=== PATIENT | female | born 1985 | race Caucasian/White ===

== ENCOUNTER 2021-10-25 09:56 | Inpatient (IN) | payer MEDICAID, SELFPAY ==
[2021-10-25 09:58] VITALS: BP 144/97; PULSE 106; RESP 18; TEMP 35.9; O2SAT 95; BMI 27.8
--- NOTE | 2021-10-25 10:32 | ED.RN ---
0.5 dose of fentanyl. drinks alcohol daily.
--- NOTE | 2021-10-25 10:37 | EX.ED.SAOD ---
HPI History of Present Illness Chief Complaint: ETOH Intox Detail of Chief Complaint: wants detox Informant: patient Narrative Narrative: Patient requesting detox from opiates and alcohol. She was accepted to a residential program, and in order to get in there she has to go through detox for so she came straight here. She last drank this morning, she has no withdrawal symptoms right now. She uses half a gram of fentanyl per day and her last use was yesterday, she does this on top of methadone that she has been on for fentanyl. She is on 40 mg of methadone daily. She denies any recent illness or injury, she has chronic issues in her abdomen though. She states she was at [facility] once and they told her she is got some inflammation in her liver and something wrong with it. No biopsy was done according to her. She also had problems after an abdominal surgery, ended up with a tummy tuck, and then trouble healing and it was discovered that a small catheter was left in her abdomen so she had another surgery to get that out and she has had problems healing in 1 particular area ever since. She states that she takes the scab off of this area every morning and a lot of pus comes out, she had an appointment with a colleague of the plastic surgeon who did her surgery, but she missed that appointment. [facility] Medical History (Updated 10/25/21 @ 10:[address] Reji Mejia MD) Alcoholism Substance abuse Allergy/AdvReac Type Severity Reaction Status Date / Time Penicillins Allergy Other Verified 10/25/21 10:31 Social History (Updated 10/25/21 @ 10:[address] Reji Mejia MD) Smoking Status: Unknown if ever smoked alcohol intake: current alcohol intake frequency: other details: Daily heavy alcohol use substance use type: opiates ROS ROS ED Constitutional Constitutional ED: Reports other Details: Shaky in the mornings before she drinks alcohol, currently not shaky ; Denies chills or fever(s) Eyes Eyes: Denies change in vision or diplopia ENT ENT ED: Denies rhinorrhea or sore throat Cardiovascular Cardiovascular: Denies chest pain or palpitations Respiratory/Chest Respiratory/Chest: Denies cough or dyspnea Gastrointestinal Gastrointestinal: Reports other Details: Chronic abdominal pain no different today, mostly upper ; Denies diarrhea, nausea or vomiting Genitourinary Genitourinary ED: Denies dysuria or hematuria Musculoskeletal Musculoskeletal: Denies back pain or neck pain Integumentary Denies abscess or rash Neurologic Neurologic: Denies headache(s), paresthesias or weakness Psychiatric Psychiatric: Denies anxiety or suicidal thoughts EXAM Physical Exam Const Vital Signs: 10/25/21 09:58 Temperature 96.7 F L Temperature Source Temporal Pulse Rate 106 H Respiratory Rate 18 Blood Pressure 144/97 H Blood Pressure Mean 112 Pulse Ox 95 Oxygen Delivery Method Room Air Positive well nourished and well developed Constitutional Narrative: Intoxicated, cooperative, pleasant. General Appearance ED: well developed and NAD HEENT Reports moist mucous membranes normocephalic and atraumatic Eyes PERRL and EOMs intact bilaterally Neck full ROM and supple Resp normal respiratory effort and clear to auscultation bilaterally Cardio regular rate, regular rhythm and no murmurs GI non-distended; Negative for no masses GI Narrative: Mildly tender throughout upper abdomen no guarding or rebound tenderness. 2 small central ventral incisional hernia is reducible nontender nonerythematous. Small wound with a scab over it without overlying erythema mildly tender. Grossly does not feel like a pointing or fluctuant abscess. Auscultation: normoactive bowel sounds Palpation: soft Back/Spine no CVA tenderness General Back: other FROM Extremity normal to inspection General Extremety ED: Negative for edema, pulses abnormal or tenderness General Extremity: Negative for edema or pulses abnormal Neuro oriented x3, CN's II-XII intact bilaterally and no sensory deficits noted Sensorium / Orientation: awake and alert Motor Exam: strength 5/5 throughout Psych mental status grossly normal, thought process normal, denies homicidal ideation and denies suicidal ideation Skin no rashes or lesions noted and no wounds MDM MDM MDM Narrative Medical decision making narrative: I spoke with Dr. sU. She states since another clinic is managing her methadone, we will not be able to give her phenobarbital or Suboxone here, and she will basically need to follow-up for methadone dosing alterations in order to help her discontinue her fentanyl/opiate use, but we can admit her here for alcohol detox using benzos. I did check with the pharmacy who will be able to dose her with her methadone 40 mg daily while she is here, therefore I think it would be reasonable that we keep her. I discussed this with her, she is under the understanding that we will be detoxing her from alcohol but not opiates and we will be able to continue her methadone dosing while she is here and she is comfortable with that plan and appreciative. I did review all of her labs. Will discuss with hospitalist. Lab Data Attestation: I reviewed the patient's lab results. Labs: Laboratory Results - last 24 hr 10/25/21 10/25/21 10/25/21 10:51 11:20 11:20 Corrected WBC TAILOR GARMENT FITTER MPV TAILOR GARMENT FITTER Immature Gran % (Auto) TAILOR GARMENT FITTER Lymph % (Auto) TAILOR GARMENT FITTER [place] % (Auto) TAILOR GARMENT FITTER Eos % (Auto) TAILOR GARMENT FITTER Baso % (Auto) TAILOR GARMENT FITTER Absolute Lymphs (auto) TAILOR GARMENT FITTER Total Counted TAILOR GARMENT FITTER Neutrophils % (Manual) TAILOR GARMENT FITTER Band Neutrophils % TAILOR GARMENT FITTER Lymphocytes % (Manual) TAILOR GARMENT FITTER Monocytes % (Manual) TAILOR GARMENT FITTER Eosinophils % (Manual) TAILOR GARMENT FITTER Basophils % (Manual) TAILOR GARMENT FITTER Metamyelocytes % TAILOR GARMENT FITTER Myelocytes % TAILOR GARMENT FITTER Promyelocytes % TAILOR GARMENT FITTER Blast Cells % TAILOR GARMENT FITTER Plasma Cell % (Manual) TAILOR GARMENT FITTER Other Cells % TAILOR GARMENT FITTER Nucleated RBC % TAILOR GARMENT FITTER Nucleated RBCs/100 WBC TAILOR GARMENT FITTER Differential Comment TAILOR GARMENT FITTER Diff Path Review TAILOR GARMENT FITTER Hypersegmented Neuts TAILOR GARMENT FITTER Atypical Lymphocytes TAILOR GARMENT FITTER Reactive Lymphocytes TAILOR GARMENT FITTER Smudge Cells TAILOR GARMENT FITTER Toxic Granulation TAILOR GARMENT FITTER Toxic Vacuolation TAILOR GARMENT FITTER Dohle Bodies TAILOR GARMENT FITTER Vasquez Rods TAILOR GARMENT FITTER Platelet Estimate TAILOR GARMENT FITTER Plt Morphology Comment TAILOR GARMENT FITTER RBC Morphology TAILOR GARMENT FITTER Polychromasia TAILOR GARMENT FITTER Hypochromasia TAILOR GARMENT FITTER Poikilocytosis TAILOR GARMENT FITTER Basophilic Stippling TAILOR GARMENT FITTER Anisocytosis TAILOR GARMENT FITTER Microcytosis TAILOR GARMENT FITTER Macrocytosis TAILOR GARMENT FITTER Spherocytes TAILOR GARMENT FITTER Sickle Cells TAILOR GARMENT FITTER Target Cells TAILOR GARMENT FITTER Tear Drop Cells TAILOR GARMENT FITTER Ovalocytes TAILOR GARMENT FITTER Stomatocytes TAILOR GARMENT FITTER [place] Bodies TAILOR GARMENT FITTER [place] Cells TAILOR GARMENT FITTER Bite Cells TAILOR GARMENT FITTER Crenated Cell TAILOR GARMENT FITTER Acanthocytes (Spur) TAILOR GARMENT FITTER Rouleaux TAILOR GARMENT FITTER Schistocytes TAILOR GARMENT FITTER PT 13.1 INR 1.0 Sodium Potassium Chloride Carbon Dioxide Anion Gap BUN Creatinine Estim Creat Clear Calc Est GFR (MDRD) Af Amer Est GFR (MDRD) Non-Af BUN/Creatinine Ratio Glucose Calcium Total Bilirubin AST ALT Alkaline Phosphatase Total Protein Albumin Globulin Albumin/Globulin Ratio Serum , Qual Urine Opiates Screen POSITIVE H Urine Methadone Screen POSITIVE H Ur Barbiturates Screen NEGATIVE Ur Phencyclidine Scrn NEGATIVE Ur Amphetamines Screen NEGATIVE MDMA (Ecstasy) Screen NEGATIVE U Benzodiazepines Scrn POSITIVE H Urine Cocaine Screen NEGATIVE U Cannabinoids Screen NEGATIVE Ur Drug Screen Comment Ethyl Alcohol 10/25/21 10/25/21 10/25/21 11:20 11:20 11:20 Corrected WBC MPV Immature Gran % (Auto) Lymph % (Auto) [place] % (Auto) Eos % (Auto) Baso % (Auto) Absolute Lymphs (auto) Total Counted Neutrophils % (Manual) Band Neutrophils % Lymphocytes % (Manual) Monocytes % (Manual) Eosinophils % (Manual) Basophils % (Manual) Metamyelocytes % Myelocytes % Promyelocytes % Blast Cells % Plasma Cell % (Manual) Other Cells % Nucleated RBC % Nucleated RBCs/100 WBC Differential Comment Diff Path Review Hypersegmented Neuts Atypical Lymphocytes Reactive Lymphocytes Smudge Cells Toxic Granulation Toxic Vacuolation Dohle Bodies Vasquez Rods Platelet Estimate Plt Morphology Comment RBC Morphology Polychromasia Hypochromasia Poikilocytosis Basophilic Stippling Anisocytosis Microcytosis Macrocytosis Spherocytes Sickle Cells Target Cells Tear Drop Cells Ovalocytes Stomatocytes [place] Bodies Rocky Cells Bite Cells Crenated Cell Acanthocytes (Spur) Rouleaux Schistocytes PT INR Sodium 139 Potassium 3.6 Chloride 105 Carbon Dioxide 26.0 Anion Gap 8 BUN 12 Creatinine 0.60 Estim Creat Clear Calc 123.68 Est GFR (MDRD) Af Amer 145 Est GFR (MDRD) Non-Af 120 BUN/Creatinine Ratio 19.9 Glucose 99 Calcium 8.8 Total Bilirubin 0.30 AST 80 H ALT 53 Alkaline Phosphatase 59 Total Protein 7.3 Albumin 3.2 Globulin 4.1 Albumin/Globulin Ratio 0.8 L Serum , Qual NEGATIVE Urine Opiates Screen Urine Methadone Screen Ur Barbiturates Screen Ur Phencyclidine Scrn Ur Amphetamines Screen MDMA (Ecstasy) Screen U Benzodiazepines Scrn Urine Cocaine Screen U Cannabinoids Screen Ur Drug Screen Comment Ethyl Alcohol 188.0 Discharge Plan Dx/Rx/DC Orders Clinical Impression: Alcohol dependence, Opiate dependence Disposition Disposition: Acute Care Hospital [facility]
--- NOTE | 2021-10-25 11:01 | CM.ED ---
DAYANA Note: DAYANA met with patient and Dashatruong Meek, [facility]venile [facility] Court Director. Patient gave verbal consent to speak to her in the presence of the Ms. Meek. Patient said that she is at the hospital for detox. Patient said that she is wanting to detox from fentanyl 1/2 gram and alcohol which patient said was alot. Patient was asked to quantify what alot of alcohol is an patient said bag of vodka. Patient said that her alcohol has increased for the last 2 months. Patient goes to [facility] for methadone. [facility] is located at [address] [place] and phone [phone]. Patient said that she is going to she was on 90 mg but due to the alcohol use she was using they decreased her methadone down by 10mg every other day and is now on 40 mg of methadone. Patient said that her methadone is being decreased due to her alcohol use. Patient said that after detox she is going to [facility] in [place] through [facility]. Patient said that she doses at 6am and her dose is between 6-8am. Patient said that this machine sign writer can speak to Dai, the RN or Lilly the Door Person. Patient was advised of the RAMP program including no visitors, no phones, no outside food and belongings locked up. Patient verbalized understanding with the RAMP program and stated her had been here in the past. Patient has drank this morning. Patient signed [facility] for [facility]. DAYANA called Andrew, Addiction Therapist at [facility] and reviewed this situation with her as patient is on methadone and is requesting detox from alcohol and fentanyl. DAYANA advised that patient is going to methadone clinic, [facility] and then plans to detox at [facility] and go to [facility]. Patient plans to continue on methadone. Andrew will speak to Dr. Us and update this machine sign writer. DAYANA updated . Andrew spoke to MD Us and called this machine sign writer back. Andrew advised that they do not dispense over 30 and that patient needs to go back to the clinic for detox. Andrew said that there is no detox from fentanyl per MD Us. DAYANA spoke to who requested that he speak to MD Us. Andrew provided MD Us's phone number to . indicated he spoke to Abeba and that Abeba stated patient could be admitted to RAMP program. DAYANA called Yaima in Pharmacy to see if the hospital pharmacy could provide 40 mg of methadone to patient for 3 to 5 days. Yaima will check and call this machine sign writer back. DAYANA called Dai at [facility]. She said that patient's last dose was at 8:44am on 10/24/21 with 40 mg. Dai confirmed that they were tapering patient down at 10 mg every 2 days but they put a hold on that as we got confirmation she was going to detox. Dai wanted to speak to RN to confirm the dosage. DAYANA obtained patient's RN, Patricia, and requested she speak to Dai. Patricia spoke to Dai and Dai advised that patient was receiving 40 mg with last dose on 10/24/21 at 8:44am. DAYANA spoke to Andrew. Andrew was advised that the patient could be admitted after spoke to Abeba. Andrew said that she will confirm about the dosage being 40 mg with Abeba. DAYANA spoke to Andrew who indicated that the limit is 30 mg if they are detoxing from methadone but patient is continuing on methadone so the dosage will remain the same. Per Andrew plan is to admit patient for detox. DAYANA updated patient. Patient is being admitted. Patient asked this machine sign writer to call [facility] and [facility]. DAYANA encouraged patient to call and advise them of her detox. Patient agreed. DAYANA said that patient will be followed with the [facility] Addiction therapist/Treatment Navigator on Thursday. Patient thanked machine sign writer. DAYANA received call from Yaima. She indicated she has enough methadone for 3-5 days of methadone at 40 mg. DAYANA updated Andrew with patient's name, address, and and drugs of choice and request for detox. DAYANA was advised by MD that patient is vaping in the room. DAYANA and LARY Gomez spoke to patient. Advised that if she vapes again it her vape product will be taken away. DAYANA called Andrew and updated her. For clarification patient is NOT detoxing from methadone. She is detoxing from alcohol. Per MD Us there is no detox from fentanyl. Patient is able to receive 40 mg of detox as she is NOT detoxing from it and the dosage is continuing. If patient was detoxing from methadone she would need to be back at the clinic she is going to for treatment. Plan: RAMP program. Plan: Ad
[2021-10-25 11:16] LABS: Amphetamine Urine VISTA NEGATIVE (<1000 ng/mL); Barbiturate Urine VISTA NEGATIVE (< 200 ng/mL); Benzodiazepine Urine VISTA POSITIVE (< 200 ng/mL); Cocaine Urine VISTA NEGATIVE (< 300 ng/mL); Ecstacy Urine VISTA NEGATIVE (< 500 ng/mL); Methadone Urine VISTA POSITIVE (< 300 ng/mL); PCP Urine VISTA NEGATIVE (< 25 ng/mL); THC Urine VISTA NEGATIVE (< 50 ng/mL); Vista UDS pH Range 6
[2021-10-25 11:54] LABS: Prothrombin Time (Protime)PT. 13.1 SECONDS (11.7-14.9)
[2021-10-25 11:55] LABS: Internal QC Validated? YES +Cl - CLEAR BKGD
[2021-10-25 11:56] LABS: Pregnancy, Serum, hCG Quali. NEGATIVE Negative
[2021-10-25 11:58] LABS: ALB/GLOB Ratio 0.8 RATIO (0.9-2.4); AST(SGOT) 80 U/L (15-37); Alanine Aminotransfer ALT/SGPT 53 U/L (13-56); Albumin, Serum 3.2 g/dL (3.2-5.0); Alkaline Phosphatase 59 U/L (45-117); Anion Gap 8 (5-15); BUN 12 mg/dL (7-18); BUN/Creat Ratio 19.9 RATIO (10-20); Calcium,Total 8.8 mg/dL (8.5-10.1); Chloride 105 mmol/L (98-107); EST Glomerular Filtration Rate 120 mL/min (>60); Est Glom Filt Rate - Afr Amer 145 mL/min (>60); Estimated Creatinine Clearance 123.68 ml/min; Globulin 4.1 g/dL (2.2-4.2); Glucose 99 mg/dL (74-106); Potassium 3.6 mmol/L (3.5-5.1); Protein, Total 7.3 g/dL (6.4-8.2); Sodium Level 139 mmol/L (136-145)
[2021-10-25 12:00] VITALS: BP 104/79; PULSE 67; RESP 16; O2SAT 94
[2021-10-25 12:56] LABS: Absolute Lymphocyte Count 3.09 X10^3/uL (0.83-4.51); Absolute Neutrophil Count 4.3 X10^3/uL (2.0-7.7); Basophil# 0.03 X10^3/uL; Basophil% 0.4 % (0-1); Eosinophil# 0.15 X10^3/uL; Eosinophils% 1.8 % (0-5); Hematocrit 38.5 % (37-47); Hemoglobin 13.5 g/dL (12.0-15.0); Lymphocyte # 3.09 X10^3/ul (0.83-4.51); Lymphocyte % 37.6 % (19-41); Mean Corp Hgb Conc 35.1 g/dL (32-36); Mean Corpuscular Hgb 33.6 pg (27.0-32.0); Mean Corpuscular Volume 95.8 fL (81-99); Mean Platelet Vol. 8.5 fl (6.2-12.0); Monocyte# 0.66 X10^3/uL; NRBC Flagged by Analyzer 0 % (0-5); Neutrophil # 4.26 X10^3/uL (2.7-7.7); Platelet Count 220 K/mm3 (150-450); RBC Distribution Width CV 11.7 % (11.6-14.6); Red Blood Count 4.02 M/mm3 (4.2-5.4); White Blood Count 8.2 K/mm3 (4.4-11.0)
--- NOTE | 2021-10-25 13:21 | PCM.HP.STD ---
HPI - General General Date of Admission: 10/25/21 Date of Service: 10/25/21 Chief Complaint: Alcohol withdrawal HPI Narrative KOKI NGO, is a 35 F who presents seeking treatment for alcohol withdrawal. Patient stated that she is going to a residential program at [facility] but was advised to come to the hospital for acute treatment for alcohol withdrawal. Patient does have a history of delirium tremens. Additionally, patient is on methadone which she has been for 7 years and has been using fentanyl. She tells me that her addiction program, [facility], in [place] prescribes her methadone. Patient had been snorting fentanyl relatively recently and states that the program there is aware that she was using fentanyl while prescribing her methadone. For alcohol, patient is drinking about a liter of vodka per day plus additional shots of alcohol on top of that. [facility] Medical History (Updated 10/25/21 @ 13:[address] Moy Doe DO) Alcoholic hepatitis Alcoholic pancreatitis Alcoholism Hepatitis C Substance abuse Allergy/AdvReac Type Severity Reaction Status Date / Time Penicillins Allergy Other Verified 10/25/21 10:31 Family History (Updated 10/25/21 @ 13:[address] Moy Doe DO) Other Alcoholism Surgical History (Updated 10/25/21 @ 13:[address] Moy Doe DO) H/O abdominoplasty H/O: hysterectomy Social History (Updated 10/25/21 @ 10:[address] Reji Mejia MD) Smoking Status: Unknown if ever smoked alcohol intake: current alcohol intake frequency: other details: Daily heavy alcohol use substance use type: opiates ROS MISSY Sanchez Has had drainage from wound in her abdomen for since her abdominoplasty. Is able to express pus from it daily. Feels that there may be still some plastic in there. All review of systems were negative except as mentioned above in the history of present illness and the other review of systems. Vital Signs Vital Signs Vital Signs: 10/25/21 09:58 Temperature 35.9 C L Temperature Source Temporal Pulse Rate 106 H Respiratory Rate 18 Blood Pressure 144/97 H Blood Pressure Mean 112 Pulse Ox 95 Oxygen Delivery Method Room Air Weight Weight: 79.379 kg Body Mass Index (BMI) 27.8 Physical Exam Const alert and oriented x3 Constitutional Narrative: Up in bed eating. Resp normal respiratory effort, no retractions, no use of accessory muscles and clear to auscultation bilaterally Cardio regular rate, regular rhythm, S1 normal heart sound and S2 normal heart sound GI normal to inspection, nondistended, normoactive bowel sounds and soft to palpation Skin Skin Narrative: Wound on anterior abdomen without any purulence adjacent to the umbilicus. Psych affect normal Results Lab / Micro Data Result Diagrams: 10/25/21 11:20 10/25/21 11:20 Labs: Laboratory Results - last 24 hr 10/25/21 10:51: Urine Opiates Screen POSITIVE H, Urine Methadone Screen POSITIVE H, Ur Barbiturates Screen NEGATIVE, Ur Phencyclidine Scrn NEGATIVE, Ur Amphetamines Screen NEGATIVE, MDMA (Ecstasy) Screen NEGATIVE, U Benzodiazepines Scrn POSITIVE H, Urine Cocaine Screen NEGATIVE, U Cannabinoids Screen NEGATIVE, Ur Drug Screen Comment 10/25/21 11:20: WBC 8.2, Corrected WBC RECEIVING SPECIALIST, RBC 4.02 L, Hgb 13.5, Hct 38.5, MCV 95.8, MCH 33.6 H, MCHC 35.1, RDW Std Deviation 41.0, RDW Coeff of Yolanda 11.7, Plt Count 220, MPV 8.5, Immature Gran % (Auto) 0.200, Neut % (Auto) 52.0, Lymph % (Auto) 37.6, [place] % (Auto) 8.0, Eos % (Auto) 1.8, Baso % (Auto) 0.4, Absolute Neuts (auto) 4.3, Absolute Lymphs (auto) 3.09, Total Counted RECEIVING SPECIALIST, Neutrophils % (Manual) RECEIVING SPECIALIST, Band Neutrophils % RECEIVING SPECIALIST, Lymphocytes % (Manual) RECEIVING SPECIALIST, Monocytes % (Manual) RECEIVING SPECIALIST, Eosinophils % (Manual) RECEIVING SPECIALIST, Basophils % (Manual) RECEIVING SPECIALIST, Metamyelocytes % RECEIVING SPECIALIST, Myelocytes % RECEIVING SPECIALIST, Promyelocytes % RECEIVING SPECIALIST, Blast Cells % RECEIVING SPECIALIST, Plasma Cell % (Manual) RECEIVING SPECIALIST, Other Cells % RECEIVING SPECIALIST, Nucleated RBC % 0, Nucleated RBCs/100 WBC RECEIVING SPECIALIST, Differential Comment RECEIVING SPECIALIST, Diff Path Review RECEIVING SPECIALIST, Hypersegmented Neuts RECEIVING SPECIALIST, Atypical Lymphocytes RECEIVING SPECIALIST, Reactive Lymphocytes RECEIVING SPECIALIST, Smudge Cells RECEIVING SPECIALIST, Toxic Granulation RECEIVING SPECIALIST, Toxic Vacuolation RECEIVING SPECIALIST, Dohle Bodies RECEIVING SPECIALIST, Vasquez Rods RECEIVING SPECIALIST, Platelet Estimate RECEIVING SPECIALIST, Plt Morphology Comment RECEIVING SPECIALIST, RBC Morphology RECEIVING SPECIALIST, Polychromasia RECEIVING SPECIALIST, Hypochromasia RECEIVING SPECIALIST, Poikilocytosis RECEIVING SPECIALIST, Basophilic Stippling RECEIVING SPECIALIST, Anisocytosis RECEIVING SPECIALIST, Microcytosis RECEIVING SPECIALIST, Macrocytosis RECEIVING SPECIALIST, Spherocytes RECEIVING SPECIALIST, Sickle Cells RECEIVING SPECIALIST, Target Cells RECEIVING SPECIALIST, Tear Drop Cells RECEIVING SPECIALIST, Ovalocytes RECEIVING SPECIALIST, Stomatocytes RECEIVING SPECIALIST, [place] Bodies RECEIVING SPECIALIST, Rocky Cells RECEIVING SPECIALIST, Bite Cells RECEIVING SPECIALIST, Crenated Cell RECEIVING SPECIALIST, Acanthocytes (Spur) RECEIVING SPECIALIST, Rouleaux RECEIVING SPECIALIST, Schistocytes RECEIVING SPECIALIST 10/25/21 11:20: PT 13.1, INR 1.0 10/25/21 11:20: Sodium 139, Potassium 3.6, Chloride 105, Carbon Dioxide 26.0, Anion Gap 8, BUN 12, Creatinine 0.60, Estim Creat Clear Calc 123.68, Est GFR (MDRD) Af Amer 145, Est GFR (MDRD) Non-Af 120, BUN/Creatinine Ratio 19.9, Glucose 99, Calcium 8.8, Total Bilirubin 0.30, AST 80 H, ALT 53, Alkaline Phosphatase 59, Total Protein 7.3, Albumin 3.2, Globulin 4.1, Albumin/Globulin Ratio 0.8 L 10/25/21 11:20: Ethyl Alcohol 188.0 10/25/21 11:20: Serum , Qual NEGATIVE Assessment & Plan Assessment/Plan (1) Alcohol dependence: PLAN: Patient's last drink was today and not actively going through alcohol withdrawal but per her history she does have history of delirium tremens. Will initiate lorazepam taper as she is already on methadone chronically for opiate withdrawal. Thiamine and folate Patient to follow-up at the program [facility] (2) Opiate dependence: PLAN: Patient on methadone chronically at [facility]. Patient informed me that they were aware that she is using fentanyl while prescribing methadone. I spoke to 1 the counselors at [facility] and told me that the patient had been discharged from the practice. They were concerned as the patient was using fentanyl and drinking alcohol. They want the patient enrolled into a residential program. Though technically the patient is correct and the fact that they knew she was using fentanyl while giving her methadone they gave her her last dose of methadone yesterday. That dose was 40 mg. Patient did not volunteer to me that she was being fired from their practice. Will continue with the 40 mg of methadone. PLAN: Plan Nicotine abuse: Nicotine patch. Patient was seen vaping earlier in the emergency room. Patient informed that she would not be allowed to vape or smoke while in the hospital. VTE prophylaxis with enoxaparin Charges/Coding Visit Charges Inpatient E&M: 65778 Init Hosp L2
--- NOTE | 2021-10-25 13:24 | NURSING ---
[facility] ALCOHOL/OPIATE DEPENDENCE
[2021-10-25 13:50] VITALS: BP 104/79; PULSE 67; RESP 16; TEMP 36.6; O2SAT 94
[2021-10-25 15:02] VITALS: BMI 29.4
[2021-10-25 15:24] VITALS: BP 111/86; PULSE 74; RESP 18; TEMP 36.4; O2SAT 95
[2021-10-25 15:55] LABS: Lipase 86 U/L (73-393)
[2021-10-25] MEDS: Methadone 10 MG Tablet 40 MG PO (16:19)
--- NOTE | 2021-10-25 17:00 | PCA ---
al called requesting more info on pt. ramp coordinator Andrew informed me they be calling if they do to give them more information. Medical record release was signed by pt and Andrew. Andrew informed me to fax what they request. I faxed to to [facility]
[2021-10-25] MEDS: LORazepam 1 MG Tablet PO ×2 (17:15→20:17)
[2021-10-25 20:14] VITALS: BP 107/73; PULSE 68; RESP 18; TEMP 36.8; O2SAT 96
[2021-10-25] MEDS: Nicotine Polacrilex 2 MG GUM PO (22:51)
[2021-10-25 22:58] VITALS: BP 106/72; PULSE 54; RESP 16; TEMP 36.8; O2SAT 96
[2021-10-26 04:28] VITALS: BP 108/83; PULSE 60; RESP 16; TEMP 36.2; O2SAT 95
[2021-10-26] MEDS: LORazepam 1 MG Tablet PO ×5 (04:32→20:56)
--- NOTE | 2021-10-26 07:07 | PCM.PN.HOSP ---
Subjective Subjective Feels good. No events overnight. Objective Data Objective Data Vital Signs: Vital Signs Temp Pulse Resp BP Pulse Ox O2 Del Method 36.2 C L 60 16 108/83 H 95 Room Air 10/26/21 04:28 10/26/21 04:28 10/26/21 04:28 10/26/21 04:28 10/26/21 04:28 10/26/21 04:28 Oxygen Delivery Method Room Air Weight: 83.96 kg Body Mass Index (BMI) 29.4 Intake & Output: Intake and Output for Last 24 Hours 10/24/21 10/25/21 10/26/21 23:59 23:59 23:59 Intake Total 300 / 300 Balance 300 / 300 Lab / Micro Data Result Diagrams: 10/25/21 11:20 10/25/21 11:20 Labs: Laboratory Results - last 24 hr 10/25/21 10:51: Urine Opiates Screen POSITIVE H, Urine Methadone Screen POSITIVE H, Ur Barbiturates Screen NEGATIVE, Ur Phencyclidine Scrn NEGATIVE, Ur Amphetamines Screen NEGATIVE, MDMA (Ecstasy) Screen NEGATIVE, U Benzodiazepines Scrn POSITIVE H, Urine Cocaine Screen NEGATIVE, U Cannabinoids Screen NEGATIVE, Ur Drug Screen Comment 10/25/21 11:20: WBC 8.2, Corrected WBC SHAPER [employer] PRESSER, RBC 4.02 L, Hgb 13.5, Hct 38.5, MCV 95.8, MCH 33.6 H, MCHC 35.1, RDW Std Deviation 41.0, RDW Coeff of Yolanda 11.7, Plt Count 220, MPV 8.5, Immature Gran % (Auto) 0.200, Neut % (Auto) 52.0, Lymph % (Auto) 37.6, [place] % (Auto) 8.0, Eos % (Auto) 1.8, Baso % (Auto) 0.4, Absolute Neuts (auto) 4.3, Absolute Lymphs (auto) 3.09, Total Counted SHAPER [employer] PRESSER, Neutrophils % (Manual) SHAPER [employer] PRESSER, Band Neutrophils % [employer] PRESSER, Lymphocytes % (Manual) [employer]ER [employer] PRESSER, Monocytes % (Manual) SHAPER [employer] PRESSER, Eosinophils % (Manual) SH[employer] PRESSER, Basophils % (Manual) SHAPER [employer] PRESSER, Metamyelocytes % [employer]ER [employer] PRESSER, Myelocytes % [employer]ER [employer] PRESSER, Promyelocytes % SHAPER [employer] PRESSER, Blast Cells % SHAPER [employer] PRESSER, Plasma Cell % (Manual) SHAPER [employer] PRESSER, Other Cells % SHAPER [employer] PRESSER, Nucleated RBC % 0, Nucleated RBCs/100 WBC SHAPER AND PRESSER, Differential Comment SHAPER [employer] PRESSER, Diff Path Review SHAPER [employer] PRESSER, Hypersegmented Neuts [employer] PRESSER, Atypical Lymphocytes [employer] PRESSER, Reactive Lymphocytes SHAPER [employer] PRESSER, Smudge Cells SHAPER [employer] PRESSER, Toxic Granulation SHAPER [employer] PRESSER, Toxic Vacuolation SHAPER [employer] PRESSER, Dohle Bodies SHAPER AND PRESSER, Vasquez Rods SHAPER AND PRESSER, Platelet Estimate SHAPER [employer] PRESSER, Plt Morphology Comment SHAPER [employer] PRESSER, RBC Morphology SHAPER [employer] PRESSER, Polychromasia SHAPER [employer] PRESSER, Hypochromasia SHAPER [employer] PRESSER, Poikilocytosis SHAPER [employer] PRESSER, Basophilic Stippling SHAPER [employer] PRESSER, Anisocytosis SH[employer]ER [employer] PRESSER, Microcytosis [employer] PRESSER, Macrocytosis SHAPER [employer] PRESSER, Spherocytes SHAPER [employer] PRESSER, Sickle Cells SHAPER [employer] PRESSER, Target Cells SHAPER [employer] PRESSER, Tear Drop Cells SHAPER [employer] PRESSER, Ovalocytes SHAPER [employer] PRESSER, Stomatocytes SHAPER [employer] PRESSER, [place] Bodies SHAPER AND PRESSER, [place] Cells SHAPER AND PRESSER, Bite Cells SHAPER AND PRESSER, Crenated Cell SHAPER AND PRESSER, Acanthocytes (Spur) SHAPER AND PRESSER, Rouleaux SHAPER AND PRESSER, Schistocytes SHAPER [employer] PRESSER 10/25/21 11:20: PT 13.1, INR 1.0 10/25/21 11:20: Sodium 139, Potassium 3.6, Chloride 105, Carbon Dioxide 26.0, Anion Gap 8, BUN 12, Creatinine 0.60, Estim Creat Clear Calc 123.68, Est GFR (MDRD) Af Amer 145, Est GFR (MDRD) Non-Af 120, BUN/Creatinine Ratio 19.9, Glucose 99, Calcium 8.8, Total Bilirubin 0.30, AST 80 H, ALT 53, Alkaline Phosphatase 59, Total Protein 7.3, Albumin 3.2, Globulin 4.1, Albumin/Globulin Ratio 0.8 L 10/25/21 11:20: Ethyl Alcohol 188.0 10/25/21 11:20: Serum , Qual NEGATIVE 10/25/21 11:20: Lipase 86 Physical Exam Const alert Constitutional Narrative: Up in bed eating breakfast. No diaphoresis. Appropriate Neuro Sensorium / Orientation: awake and alert Psych affect normal Assessment & Plan Assessment/Plan (1) Alcohol dependence: PLAN: Patient's last drink was 8/6 and not actively going through alcohol withdrawal but per her history she does have history of delirium tremens. Will initiate lorazepam taper as she is already on methadone chronically for opiate withdrawal. Thiamine and folate Patient to follow-up at the program [facility] (2) Opiate dependence: PLAN: Patient on methadone chronically at [facility]. Patient informed me that they were aware that she is using fentanyl while prescribing methadone. I spoke to 1 the counselors at [facility] and told me that the patient had been discharged from the practice. They were concerned as the patient was using fentanyl and drinking alcohol. They want the patient enrolled into a residential program. Though technically the patient is correct and the fact that they knew she was using fentanyl while giving her methadone they gave her her last dose of methadone yesterday. That dose was 40 mg. Patient did not volunteer to me that she was being fired from their practice. Will continue with the 40 mg of methadone. Further adjustments can be performed when she goes to residential program. Patient will not be going back to [facility] as a informed me that she was fired from their practice for using fentanyl as well as drinking large quantities of alcohol while on methadone. PLAN: Plan Nicotine abuse: Nicotine patch. Patient was seen vaping earlier in the emergency room. Patient informed that she would not be allowed to vape or smoke while in the hospital. VTE prophylaxis with enoxaparin Disposition: Likely October 28 to [facility] residential program. Charges/Coding Visit Charges Inpatient E&M: 54593 Subs Hosp L1
[2021-10-26 09:01] VITALS: BP 113/79; PULSE 62; RESP 18; TEMP 36.9; O2SAT 94
[2021-10-26] MEDS: Dicyclomine 10 MG Capsule 20 MG PO ×2 (09:11→16:33)
[2021-10-26] MEDS: Ondansetron 8 MG Tablet PO ×2 (09:11→21:02)
[2021-10-26] MEDS: Methadone 10 MG Tablet 40 MG PO (09:11)
[2021-10-26] MEDS: Folic Acid 1 MG Tablet PO (09:12)
[2021-10-26] MEDS: Thiamine Hydrochloride 100 MG Tablet PO (09:12)
[2021-10-26] MEDS: hydrOXYzine PAM 25 MG Capsule 50 MG PO ×2 (09:12→16:33)
[2021-10-26] MEDS: Nicotine Polacrilex 2 MG GUM PO (09:14)
[2021-10-26] MEDS: Estradiol 0.5 MG Tablet PO (12:23)
[2021-10-26] MEDS: Clindamycin HCl 150 MG Capsule 300 MG PO ×2 (12:24→20:57)
[2021-10-26 12:25] VITALS: BP 110/74; PULSE 63; RESP 18; TEMP 36.8; O2SAT 95
[2021-10-26 16:31] VITALS: BP 110/66; PULSE 66; RESP 16; TEMP 36.9; O2SAT 98
[2021-10-26 20:53] VITALS: BP 121/89; PULSE 72; RESP 18; TEMP 36.4; O2SAT 93
[2021-10-26] MEDS: Ibuprofen 600 MG Tablet PO (21:03)
[2021-10-27] MEDS: LORazepam 1 MG Tablet PO ×7 (00:49→23:42)
[2021-10-27 05:03] VITALS: BP 124/81; PULSE 80; RESP 18; TEMP 36.9; O2SAT 96
[2021-10-27] MEDS: Methadone 10 MG Tablet 40 MG PO (05:03)
--- NOTE | 2021-10-27 07:32 | PN.HOSP_ITS ---
Subjective Subjective Feels fine. Does complain of chronic abdominal pain and distention. Objective Data Objective Data Vital Signs: Vital Signs Temp Pulse Resp BP Pulse Ox O2 Del Method 36.9 C 80 18 124/81 H 96 Room Air 10/27/21 05:03 10/27/21 05:03 10/27/21 05:03 10/27/21 05:03 10/27/21 05:03 10/27/21 05:03 Oxygen Delivery Method Room Air Weight: 83.96 kg Body Mass Index (BMI) 29.4 Intake & Output: Intake and Output for Last 24 Hours 10/25/21 10/26/21 10/27/21 23:59 23:59 23:59 Intake Total 300 / 300 Balance 300 / 300 Lab / Micro Data Result Diagrams: 10/25/21 11:20 10/25/21 11:20 Physical Exam Const alert and no apparent distress GI soft to palpation GI Narrative: Reducible hernia just below umbilicus. Psych Psych Narrative: Flat affect Assessment & Plan Assessment/Plan (1) Alcohol dependence: PLAN: Patient's last drink was 10/26 and not actively going through alcohol withdrawal but per her history she does have history of delirium tremens. Will initiate lorazepam taper as she is already on methadone chronically for opiate withdrawal. Thiamine and folate Patient to follow-up at the program [facility] (2) Opiate dependence: PLAN: Patient on methadone chronically at [facility]. Patient informed me that they were aware that she is using fentanyl while prescribing methadone. I spoke to 1 the counselors at [facility] and told me that the patient had been discharged from the practice. They were concerned as the patient was using fentanyl and drinking alcohol. They want the patient enrolled into a residential program. Though technically the patient is correct and the fact t hat they knew she was using fentanyl while giving her methadone they gave her her last dose of methadone yesterday. That dose was 40 mg. Patient did not volunteer to me that she was being fired from their practice. Will continue with the 40 mg of methadone. Further adjustments can be performed when she goes to residential program. Patient will not be going back to [facility] as a informed me that she was fired from their practice for using fentanyl as well as drinking large quantities of alcohol while on methadone. (3) Abdominal hernia: PLAN: Patient has been having abdominal pain for months now. Lower abdomen. She was concerned about her organs being involved. Informed patient that her liver and pancreas that she was concerned about area and also mention her spleen is not as well. Patient in 2017 the central abruption and had an emergent C- section at that time. Subsequently she in 2019 she underwent hysterectomy and had 2 hernia surgeries. Clinically this is consistent with a recurrent hernia that is not incarcerated. Recommended that she follow-up with her plastic surgeon who did her previous hernia surgery to see if she would be a candidate for another surgery or not. I did offer her a x-ray but I told her that this is been going on for a while and her reason for admission is alcohol withdrawal that I cannot justify doing imaging of her abdomen particular since this not process. She was not satisfied with just getting an x-ray and thought that she could just get scans of her abdomen because she is in the hospital. PLAN: Plan Nicotine abuse: Nicotine patch. Patient was seen vaping earlier in the emergency room. Patient informed that she would not be allowed to vape or smoke while in the hospital. VTE prophylaxis with enoxaparin Disposition: Likely October 28 to [facility]. Greater than 35 minutes of which greater than for present time was discussing the patient about her abdomen, reviewing her history and also discussing why certain test cannot be performed in the hospital when someone's reason for admission is not related with the indication for testing. I did tell her that if there is an acute issue that we can certainly reevaluate but the issue. Charges/Coding Visit Charges Inpatient E&M: [address] [facility] Hosp L3
[2021-10-27 08:00] VITALS: BP 109/83; PULSE 60; RESP 18; TEMP 36.6; O2SAT 98
[2021-10-27] MEDS: Folic Acid 1 MG Tablet PO (09:38)
[2021-10-27] MEDS: Thiamine Hydrochloride 100 MG Tablet PO (09:38)
[2021-10-27] MEDS: Clindamycin HCl 150 MG Capsule 300 MG PO ×2 (09:39→20:29)
[2021-10-27] MEDS: Estradiol 0.5 MG Tablet PO (09:40)
[2021-10-27] MEDS: hydrOXYzine PAM 25 MG Capsule 50 MG PO ×2 (09:50→20:26)
[2021-10-27] MEDS: Nicotine Polacrilex 2 MG GUM PO ×2 (10:41→18:53)
[2021-10-27] MEDS: Fleet Enema 1 ML RC (14:12)
[2021-10-27 15:38] VITALS: BP 117/89; PULSE 70; RESP 16; TEMP 36.6; O2SAT 94
[2021-10-27 20:23] VITALS: BP 123/94; PULSE 89; RESP 20; TEMP 37; O2SAT 94
--- NOTE | 2021-10-27 22:18 | NURSING ---
Took a phone call from Delmy Senait, . Delmy states she is working with the courts and needs the patient to sign papers. The court needs to have the papers by noon 10/28/2021. Delmy states she is working with an promotions director named Tommy but she is unsure of how to spell his last name. This RN called the spring up supervisor. It was decided that Delmy will need to call in and talk to case management in the morning. This RN told Delmy that she would need to call in the morning to talk to case management. Delmy states that she may be able to have the papers faxed over to the hospital and then the patient can sign them.
[2021-10-27 23:38] VITALS: BP 112/80; PULSE 72; RESP 20; TEMP 36.9; O2SAT 98
[2021-10-27] MEDS: Gabapentin 300 MG Capsule PO (23:42)
[2021-10-28 05:40] VITALS: BP 116/73; PULSE 69; RESP 18; TEMP 36.8; O2SAT 92
[2021-10-28] MEDS: Methadone 10 MG Tablet 40 MG PO (05:45)
[2021-10-28] MEDS: LORazepam 1 MG Tablet PO ×2 (05:45→11:38)
--- NOTE | 2021-10-28 06:10 | NURSING ---
late entry. fax recieved from Delmy Sapp. Will give papers to charge rn on dayshift.
[2021-10-28 09:30] VITALS: BP 156/96; PULSE 114; RESP 20; TEMP 36.6; O2SAT 97
[2021-10-28] MEDS: Clindamycin HCl 150 MG Capsule 300 MG PO (10:04)
[2021-10-28] MEDS: Gabapentin 300 MG Capsule PO (10:04)
[2021-10-28] MEDS: Nicotine Polacrilex 2 MG GUM PO ×2 (10:05→14:58)
[2021-10-28] MEDS: Estradiol 0.5 MG Tablet PO (10:06)
--- NOTE | 2021-10-28 10:30 | CASEMGMT ---
Social Work SW spoke with charge nurse who states pt's 's step mother Delmy Sapp is requesting court papers be signed by pt and return. SW met with pt and introduced self and role of SW. SW explained that hospital has received call from Delmy Sapp stating there are important court papers that need signed and returned to [facility] [address] by today at noon. Pt states she knows Delmy Sapp and she is familiar with the papers she is requesting be signed. SW provided pt with the papers and advised pt that this SW in not requesting papers be signed only presenting the information from Delmy Sapp. Pt expresses understanding and states she understands what the documents are about. Pt requests 10 minutes to consider. SW left pt alone with papers. When SW returned to pt she did sign papers and was agreeable for SW to fax them to Delmy Sapp. QUINTON signed and papers faxed to Delmy. SW returned signed papers along with the fax confirmation to pt. No other SW needs. JESSE Fuentes
--- NOTE | 2021-10-28 11:42 | PCM.DC.SUM ---
Providers Date of Admission: 10/25/21 Date of Discharge: 10/28/21 Primary Care Physician: Tori Ashby Reason For Visit: ALCOHOL/OPIATE DEPENDENCE Diagnosis Discharge Diagnosis (1) Alcohol dependence: Status: Acute Code(s): F10.20 - Alcohol dependence, uncomplicated (2) Opiate dependence: Status: Acute Code(s): F11.20 - Opioid dependence, uncomplicated (3) Abdominal hernia: Status: Acute Code(s): K46.9 - Unspecified abdominal hernia without obstruction or gangrene Medications at Discharge Home Medications albuterol sulfate 90 mcg/actuation aerosol inhaler (Ventolin HFA) 90 mcg inhalation Q6H PRN Shortness Of Breath Or Wheezing 10/25/21 clindamycin phosphate 2 % vaginal cream 1 appful vaginal QHS Check with primary doctor 10/25/21 clotrimazole-betamethasone 1 %-0.05 % topical cream 1 applic topical BID Check with primary doctor 10/25/21 estradiol 0.5 mg tablet 0.5 mg PO DAILY Check with primary doctor 10/25/21 Hospital Course Operations None Procedures None Summary of Care Provided Minutes Spent on Discharge: 45 Hospital Course: Patient is a 45-year-old female with past medical history as outlined was admitted through the ED on 10/25/2021 for acute alcohol withdrawal. She drank about a liter of vodka daily in addition to several shots of alcohol and says she was also using fentanyl though she was on a methadone program. Patient initially said that her methadone program was aware that she was using fentanyl but it transpired that she had actually been let go from the methadone treatment program because she was using fentanyl. She was admitted and managed for acute alcohol withdrawal. She was started on alcohol withdrawal protocol with phenobarbital and tolerated a 3-day detox process. Patient did well and remained stable. She was discharged to [facility] on 10/28/2021. She is to follow-up with her primary care doctor within 1 to 2 weeks. Patient was seen and examined prior to discharge. She complained of some chronic lower abdominal pain which she said was due to the surgery that she had a long time ago which was complicated by hernia. She also had a scab on her abdomen which was chronic, and which she was counseled not to pick at this. Patient does not need wound care for this chronic scab. Review of systems otherwise negative. Labs and vitals reviewed. Home medication reviewed and reconciled. Physical Exam Const alert, oriented x3 and no apparent distress General Appearance: cooperative, comfortable and well kempt Orientation / Consciousness: awake Exam Limitations: no limitations HEENT normocephalic, head/scalp atraumatic, hearing grossly normal bilaterally and moist oral mucous membranes Mouth: oral and palatal mucosa normal Eyes PERRL, EOMs intact bilaterally and conjunctivae normal Neck no lymphadenopathy and supple Resp normal respiratory effort, no retractions, no use of accessory muscles and clear to auscultation bilaterally Cardio regular rate, regular rhythm, S1 normal heart sound, S2 normal heart sound and no murmurs GI normal to inspection, nondistended, normoactive bowel sounds and soft to palpation GI Narrative: minimal lower abdominal tenderness, no guarding or rebound tenderness. Superficial scab near umbilicus, due to her picking continuously at her skin. Extremity normal to inspection, full ROM and no clubbing, cyanosis or edema Skin no rashes or lesions noted, no wounds and skin turgor normal Neuro oriented x3, CN's II-XII intact bilaterally, moves all extremities and no focal motor deficits Sensorium / Orientation: awake and alert Speech: speech normal Motor Exam: strength 5/5 throughout Psych affect normal Weight / BMI Weight Weight: 185 lb 1.602 oz Body Mass Index (BMI) 29.4 ABG / Lab / Microbiology Data Result Diagrams: 10/25/21 11:20 10/25/21 11:20 D/C Instructions Discharge Diet: Low fat / Low cholesterol Discharge Activity: Return to Normal Activity Weight Bearing Status: Weight bearing as tolerated Call your doctor if you observe: Fever of 101 or Higher, Shortness of breath, Dizziness, Swelling in the ankles and Chest pain Meaningful Use Info Meaningful Use Diagnoses (Choose all that apply): None applicable Discharge Plan Admission Admit Date/Time: 10/25/21 13:16 Primary Reason for Your Visit: acute alcohol withdrawal Attending Provider: Ros Lamb Primary Care Provider: Tori Ashby Consulting Providers: Moy Doe Instructions Patient Instructions: Addiction: Getting Help Discharge Orders/Prescriptions Prescriptions: Continued clotrimazole-betamethasone 1-0.05 % Cream 1 applic TOPICAL BID clindamycin phosphate 2 % Cream 1 appful VAGINAL QHS Rx Instructions: for 3 days estradiol 0.5 mg Tablet 0.5 mg PO DAILY Rx Instructions: off 5 days; repeat cycle albuterol sulfate [Ventolin HFA] 90 mcg/actuation Hfa Aerosol Inhaler 90 mcg INHALATION Q6H PRN (Reason: Shortness Of Breath Or Wheezing) Referrals / Follow Up: Tori Ashby [Other] - Within 2 Weeks Disposition Disposition (needs filled in before D/C Order can be placed): Home, Self Care Charges/Coding Visit Charges Inpatient E&M: 89507 Disch Hosp
[2021-10-28 14:30] VITALS: BP 132/91; PULSE 88; RESP 16; TEMP 36.7; O2SAT 97
[2021-10-28] MEDS: hydrOXYzine PAM 25 MG Capsule 50 MG PO (14:57)
== END 2021-10-28 17:39 | disposition home or self-care (01) | DRG 773 ==
LOC: ED 11:05 → MS3 13:45
PROVIDERS: Emergency Provider Emergency Medicine; Visit Provider Student in an Organized Health Care Education/Training Program
DX: F10.239 Alcohol dependence with withdrawal, unspecified (principal); F11.20 Opioid dependence, uncomplicated; K46.9 Unspecified abdominal hernia without obstruction or gangrene; Y90.6 Blood alcohol level of 120-199 mg/100 ml
CPT/HCPCS: 36415; 80053; 80307; 82077; 83690; 84703; 85025; 85610; 97802; 99283

== ENCOUNTER 2024-06-22 00:16 | Inpatient (IN) | payer MEDICAID, SELFPAY ==
[2024-06-22 00:18] VITALS: BP 134/104; PULSE 72; RESP 14; TEMP 36.1; O2SAT 98; BMI 23.4
[2024-06-22 00:22] VITALS: BP 128/107; PULSE 86; RESP 20; O2SAT 100
--- NOTE | 2024-06-22 00:35 | ED.RN ---
This RN entered the room after another RN called out stating that the patient was having a seizure. This RN brought supplies to start an IV. While trying to get the patient into a gown, the patient was yelling at [facility] staff stating you are not gonna fucking touch me, stop fucking touching me. This RN and other RNs at bedside, educated the patient about the importance of IV access and having monitoring in place. The patient was agitated and kept pulling away from balance staff staker. The patient continued to be aggressive with balance staff staker. The patient stated you guys will need a fucking machine to get an IV in me, you aren't fucking touching me until there is a machine. This RN notified LARY Cobb of needing an ultrasound assisted IV. This RN went into the patient's room to assist Jordyn with the IV d/t the patient's aggression. The patient continued to yell at balance staff staker and jerk away from [place] while trying to establish the IV. After the first failed attempt to obtain IV access, the patient stated well obviously it fucking blew, because it is always going to fucking blow and you guys are not going to be able to get the fucking IV because you need the fucking machine. Vlad RN went to get the Ultrasound machine for Jordyn, this RN was removing the trash from the used IV supplies. Jordyn had moved to the other side of the bed to assess the patient's right arm, the patient pulled her right arm away from Jordyn when Jordyn attempted to assess the patient, the patient flinched her left arm towards Jordyn. This RN lightly put her arm on the patient's shoulder. The patient started to yell stating you are not going to fucking touch me, I don't want you in here and you need to get the fuck out of here. This RN attempted to deescalate the patient and educate the patient on what this RN was doing, but the patient continued to yell at this RN stating, get the fuck out of here right now. This RN exited per patient request and d/t other RNs being at bedside with the patient.
--- NOTE | 2024-06-22 00:39 | EDS_ITS ---
HPI History of Present Illness Chief Complaint: ETOH Intox Informant: patient and spouse/S.O. Onset/Context/Timing Onset: Weeks Context: Gradual Onset Current Severity: Moderate Maximum Severity: Moderate Associated Symptoms Associated Symptoms: Positive for vomiting* Narrative Narrative: 38-year-old female history of drug and alcohol abuse. Drinks about 750 mL of whiskey daily. History of a seizure disorder, pancreatitis, hepatitis C and lupus with rheumatoid arthritis. Patient basically is requesting inpatient detox for alcohol abuse. Did have some mild nausea and vomiting today. Prior similar symptoms: Yes Recent Illness/Hospitalization: No PFSH PFSH Medical History (Updated 06/22/24 @ 01:[address] Elsa Capone MD) Nicotine-filled electronic cigarette user Seizure disorder Abdominal hernia Alcoholic pancreatitis Alcoholic hepatitis Hepatitis C Opiate dependence Substance abuse Alcoholism Home Medications ?Medication ?Instructions ?Recorded ?Last Taken ?Type albuterol sulfate 90 mcg/actuation 90 mcg inhalation Q 6H PRN 10/25/21 Unknown History aerosol inhaler (Ventolin HFA) Shortness Of Breath Or Wheezing clindamycin phosphate 2 % vaginal 1 appful vaginal QHS Check with 10/25/21 Unknown History cream primary doctor clotrimazole-betamethasone 1 1 applic topical BID Chec k with 10/25/21 Unknown History %-0.05 % topical cream primary doctor estradiol 0.5 mg tablet 0.5 mg PO DAILY Check with p rimary 10/25/21 Unknown History doctor Allergy/AdvReac Type Severity Reaction Status Date / Time No Known Allergies Allergy Verified 06/22/24 00:17 Family History Other Alcoholism Surgical History H/O abdominoplasty H/O: hysterectomy Social History (Updated 06/22/24 @ 01:[address] Elsa Capone MD) household members: significant other Smoking Status: Current every day smoker tobacco type: e-cigarettes alcohol intake: current alcohol intake frequency: other details: Daily heavy alcohol use substance use type: opiates ROS ROS ED ROS Narrative Nausea and vomiting. Constitutional Constitutional ED: Denies chills or fever(s) Eyes Eyes: Denies blurry vision ENT ENT ED: Denies ear pain Cardiovascular Cardiovascular: Denies chest pain Respiratory/Chest Respiratory/Chest: Denies cough or dyspnea Gastrointestinal Gastrointestinal: Reports nausea and vomiting; Denies abdominal pain, constipation, diarrhea or melena Genitourinary Genitourinary ED: Denies dysuria Musculoskeletal Musculoskeletal: Denies arthralgias Integumentary Denies abscess or Abrasions Neurologic Neurologic: Denies headache(s) Psychiatric Psychiatric: Reports anxiety and depression Endocrine Endocrinology: Denies cold intolerance Hematologic/Lymphatic Hematologic/Lymphatic: Denies easy bleeding, easy bruising or lymphadenopathy Allergic/Immunologic Allergic/Immunologic ED: Denies mouth swelling, tongue swelling or urticaria EXAM Physical Exam Narrative Exam Narrative: There are 8-year-old female vital signs are stable afebrile. Patient does not look septic or toxic. She is emotionally upset and tearful. Significant other at bedside. H EENT exam pupils round react to light. Moist mucous membranes. Neck nontender no lymphadenopathy. Lungs clear to auscultation bilaterally. Heart regular rhythm rate about 80 no murmur. Abdomen soft, nontender, nondistended normal bowel sounds without peritoneal signs. Moving all 4 ex tremities. Nontender no edema. Normal strength. Normal range of motion. Neurologically she may be intoxicated but she is awake alert. Answering questions following commands. No focal motor deficits. Const Vital Signs: 06/22/24 00:18 06/22/24 00:22 Temperature 96.9 F L Temperature Source Temporal Pulse Rate 72 86 Respiratory Rate 14 20 H Blood Pressure 134/104 H 128/107 H Blood Pressure Mean 114 114 Blood Pressure Source Monitor Blood Pressure Position Sitting Pulse Ox 98 100 Oxygen Delivery Method Room Air Room Air Positive well nourished and well developed; Negative for obese, cachectic, contractures or unkempt General Appearance ED: well developed and NAD; Negative for unkempt, cachectic, contractures or pallor Nutritional Appearance: Negative for cachectic or obese HEENT Reports moist mucous membranes atraumatic; Negative for trauma or tenderness Eyes PERRL and EOMs intact bilaterally General Eye ED: Negative for pale conjunctiva Neck no lymphadenopathy, supple and no JVD Lymph Lymphatic: no lymphadenopathy noted Chest Wall inspection of chest normal and palpation of chest normal Resp normal respiratory effort and clear to auscultation bilaterally Auscultation: Negative for rales, rhonchi or wheezes Cardio regular rate, regular rhythm, S1 normal heart sound, S2 normal heart sound and no murmurs GI soft to palpation, non-tender, non-distended and no masses Palpation: Negative for tender, guarding or rigid Back/Spine no CVA tenderness General Back: Negative for CVA tenderness Cervical Spine: Negative for cervical spine tenderness Thoracic Spine / Upper Back: Negative for thoracic spinal tenderness Lumbar Spine / Lower Back: Negative for lumbar spinal tenderness Coccyx: Negative for swelling Extremity General Extremety ED: Negative for edema or tenderness General Extremity: Negative for edema Neuro oriented x3 and CN's II-XII intact bilaterally Neuro Narrative: Acting intoxicated. Sensorium / Orientation: alert, oriented to person, oriented to place and oriented to time; Negative for confused, lethargic or stuporous Speech: speech normal Motor Exam: strength 5/5 throughout Psych Negative for mental status grossly normal Psych Narrative: Emotionally upset. Crying. Tearful. Anxious. Appearance: Negative for unkempt Attitude: No agitated, No aggressive and No hostile Mood & Affect: depressed, anxious and tearful Skin General Skin Exam: Negative for jaundice or pallor Lesions: no lesions Rashes: no rashes MDM MDM MDM Narrative Medical decision making narrative: 38-year-old female history of drug abuse. Requesting detox for alcohol abuse. Screening labs will be obtained. I will speak to the hospitalist about admission. Repeat exam patient is awake alert in the room at 1:30 AM. Izzy is trying to coax her to get back in bed due to her alcohol level in case she would have a seizure we do not want her fall or get injured. I have already spoken to the hospitalist she will be down to evaluate patient for admission. History & Record Review Discussion w/independent historian: Patient and Family Additional record(s) reviewed:: Prior inpatient record, Prior outpatient record, Prior ED visit and Prior labs Lab Data Attestation: I reviewed the patient's lab results. Lab results narrative: CBC white count 11.8. H&H 13 and 37. Platelets 101. Electrolytes show sodium 138. Gap 14. BUN and creatinine are 9 and 0.6. Liver enzymes show an AST of 177, ALT of 58 and alk phos 111. Serum test negative. Alcohol level is 374. Labs: Laboratory Results - last 24 hr 06/22/24 00:15 WBC 11.8 H RBC 3.90 L Hgb 13.7 Hct 37.7 MCV 96.7 MCH 35.1 H MCHC 36.3 H RDW Std Deviation 40.0 RDW Coeff of Yolanda 11.5 L Plt Count 101 L MPV 9.2 Immature Gran % (Auto) 0.300 Neut % (Auto) 47.4 Lymph % (Auto) 44.9 H [place] % (Auto) 6.8 Eos % (Auto) 0.3 Baso % (Auto) 0.3 Absolute Neuts (auto) 5.6 Absolute Lymphs (auto) 5.28 H Nucleated RBC % 0 Sodium 138 Potassium 3.3 Chloride 97 L Carbon Dioxide 26.8 Anion Gap 14 BUN 9 Creatinine 0.63 L Estim Creat Clear Calc 118.90 Est GFR (MDRD) Non-Af 117 BUN/Creatinine Ratio 14.7 Glucose 83 Calcium 9.1 Total Bilirubin 0.82 AST 177 H ALT 58 H Alkaline Phosphatase 111 H Total Protein 8.3 Albumin 4.2 Globulin 4.1 Albumin/Globulin Ratio 1.0 Serum , Qual NEGATIVE Ethyl Alcohol 374.0 H* Discharge Plan Dx/Rx/DC Orders Clinical Impression: Alcohol abuse, Admitted to alcohol detoxification center, History of seizure, History of drug abuse, Acute alcohol intoxication Disposition Disposition: Acute Care Hospital [facility]
[2024-06-22 00:56] LABS: Absolute Lymphocyte Count 5.28 X10^3/uL (0.83-4.51); Absolute Neutrophil Count 5.6 X10^3/uL (2.0-7.7); Basophil# 0.04 X10^3/uL; Basophil% 0.3 % (0-1); Eosinophil# 0.03 X10^3/uL; Eosinophils% 0.3 % (0-5); Hematocrit 37.7 % (37-47); Hemoglobin 13.7 g/dL (12.0-15.0); Lymphocyte # 5.28 X10^3/ul (0.83-4.51); Lymphocyte % 44.9 % (19-41); Mean Corp Hgb Conc 36.3 g/dL (32-36); Mean Corpuscular Hgb 35.1 pg (27.0-32.0); Mean Corpuscular Volume 96.7 fL (81-99); Mean Platelet Vol. 9.2 fl (6.2-12.0); Monocyte% 6.8 % (0-10); NRBC Flagged by Analyzer 0 % (0-5); Neutrophil # 5.58 X10^3/uL (2.7-7.7); Neutrophil % 47.4 % (47-70); POSITIVE DIFFERENTIAL YES; Platelet Count 101 K/mm3 (150-450); RBC Distribution Width CV 11.5 % (11.6-14.6); White Blood Count 11.8 K/mm3 (4.4-11.0)
--- NOTE | 2024-06-22 00:58 | ED.RN ---
ALERTED BY MACHINING ENGINEER PT FAMILY CALLED OUT AND STATED PT WAS HAVING A SEIZURE. THIS RN INTO ROOM. ALERTED OTHER RNs OUTSIDE OF DOOR THAT PT WAS HAVING SEIZURE. Oliverio ARCHULETA RN, Balta CARLSON RN AND Harish PARKER RN INTO ROOM. DR. GARCIA INTO ROOM WELL. PT STOPPED SEIZING. BECAME CONFUSED AND SWINGING ARMS AGGRESSIVELY. ATTEMPTED TO REASSURE PT THAT SHE WAS IN ED AND WAS BEING CARED FOR, FAMILY AT BEDSIDE. PT REFUSING TO REMOVE CLOTHES TO GET INTO GOWN, REFUSING IV. Harish PARKER EDITOR MANAGING DIRECTOR BACK INTO ROOM TO START IV.
[2024-06-22 01:02] LABS: Differential Indicated SCAN CRITERIA MET
[2024-06-22 01:04] LABS: Internal QC Validated? YES +Cl - CLEAR BKGD; Pregnancy, Serum, hCG Quali. NEGATIVE Negative
--- NOTE | 2024-06-22 01:10 | ED.RN ---
PT. FOUND TAKING OFF HER MONITORING EQUIPMENT. THIS NURSE PLACED MONITORING EQUIPMENT BACK ON THE PT. AND EDUCATED HER ON THE NEED FOR IT TO REMAIN ON D/T POTENTIAL SEIZURE ACTIVITY. PT. VERBALIZED UNDERSTANDING AND PLACED IN POSITION OF COMFORT IN BED.
[2024-06-22 01:13] LABS: AST(SGOT) 177 U/L (<=31); Alanine Aminotransfer ALT/SGPT 58 U/L (<=34); Albumin, Serum 4.2 g/dL (3.5-5.0); Alkaline Phosphatase 111 U/L (35-104); Anion Gap 14 (5-15); BUN 9 mg/dL (4-19); BUN/Creat Ratio 14.7 RATIO (10-20); Calcium,Total 9.1 mg/dL (7.6-11.0); Carbon Dioxide 26.8 mmol/L (21.0-32.0); Chloride 97 mmol/L (98-108); Creatinine, Serum 0.63 mg/dL (0.70-1.20); EST Glomerular Filtration Rate 117 (>60); Globulin 4.1 g/dL (2.2-4.2); Glucose 83 mg/dL (70-99); Potassium 3.3 mmol/L (3.3-5.1); Protein, Total 8.3 g/dL (5.9-8.4); Sodium Level 138 mmol/L (133-145); Total Bilirubin 0.82 mg/dL (0.00-1.30)
[2024-06-22 01:16] VITALS: BP 122/67; PULSE 68; RESP 12; TEMP 36.8; O2SAT 100
--- NOTE | 2024-06-22 01:29 | PCM.HP.STD ---
HPI - General General Date of Admission: 06/22/24 Date of Service: 06/22/24 Chief Complaint: Detoxification request. HPI Narrative The patient is a 38 y/o F w/ PMHx: Hx Polysubstance abuse (Prior Opiates/fentanyl/heroin previously now on chronic methadone and reports clean status for several years), Seizure disorder (on keppra), EtOH abuse (currently 750 ml whiskey daily), history alcohol withdrawal related seizure/DT, Alcoholic hepatitis/pancreatitis, Hepatitis C, Lupus, Tobacco use->E-cigarette use, Anxiety and Depression who presents to the [facility] ED on 06/22/24 with history of request of alcohol detoxification with decreased recent intake with onset of nausea and emesis on day of presentation, increased emotional lability. Patient notes her last drink was a couple of hours prior to ED presentation. Patient reports that she has daily episode of nausea and emesis usually in the morning. Workup in the ED included T96.9, heart rate 72, BP 134/104, respiratory rate 14, 98% on room air, CBC with WBC 11.8, he 1 13.7, platelet 101 with lymphocytosis, CMP with chloride 97, BUN/creatinine 9/0.63, AST/LT 177/58, alk phos 111 otherwise unremarkable, serum testing negative, EtOH level 374, pending UDS upon evaluation of patient. [facility] Medical History Lupus Nicotine-filled electronic cigarette user Seizure disorder Abdominal hernia Alcoholic pancreatitis Alcoholic hepatitis Hepatitis C Opiate dependence Substance abuse Alcoholism Home Medications ?Medication ?Instructions ?Recorded ?Last Taken ?Type albuterol sulfate 90 mcg/actuation 90 mcg inhalation Q6H PRN 10/25/21 Unknown History aerosol inhaler (Ventolin HFA) Shortness Of Breath Or Wheezing estradiol 0.5 mg tablet 0.5 mg PO DAILY Check with primary 10/25/21 Unknown History doctor levetiracetam 500 mg tablet 500 mg PO BID 06/22/24 Unknown History Allergy/AdvReac Type Severity Reaction Status Date / Time No Known Allergies Allergy Verified 06/22/24 00:17 Family History (Updated 06/22/24 @ 01:[address] Elsa Capone MD) Father Alcoholism adopted (Patient notes her biological father with history of EtOH abuse but otherwise she does not know her maternal/paternal family history.) Surgical History H/O abdominoplasty H/O: hysterectomy Social History (Updated 06/22/24 @ 01:[address] Elsa Capone MD) household members: significant other Electronic Cigarette Use: with nicotine alcohol intake: current alcohol intake frequency: 3 or more drinks per day Alcohol type: hard liquor details: Daily heavy alcohol use substance use type: other details: Former heroin/fentanyl/opiate abuse, reports clean status, on methadone. ROS ROS Narrative Admission Review of Systems: CONSTITUTIONAL: No weight loss, fever, chills, + weakness or fatigue. HEENT: + Congestion. Eyes: No visual loss, blurred vision, double vision or yellow sclerae. Ears, Nose, Throat: No hearing loss, sneezing,runny nose or sore throat. SKIN: No rash or itching, lesions, wounds. CARDIOVASCULAR: No chest pain, chest pressure or chest discomfort, palpitations, edema, orthopnea, syncopal events. RESPIRATORY: No shortness of breath, cough or sputum, wheezing, hemoptysis. GASTROINTESTINAL: + Chronic episodes in the morning of nausea and bouts of emesis. No anorexia, diarrhea, abdominal pain, melena, BRBPR. GENITOURINARY: No dysuria, frequency, urgency or retention. NEUROLOGICAL: + Seizure disorder. No headache, dizziness, syncope, paralysis, ataxia, numbness or tingling in the extremities, focal weakness, change in bowel or bladder control. MUSCULOSKELETAL: + muscle, back pain, joint pain or stiffness. HEMATOLOGIC: No anemia. + Easy bleeding/bruising. LYMPHATICS: No enlarged nodes. No history of splenectomy. PSYCHIATRIC: + History of anxiety and depression. ENDOCRINOLOGIC: No reports of sweating, cold or heat intolerance. No polyuria or polydipsia. ALLERGIES: No history of asthma, hives, eczema or rhinitis. Vital Signs Vital Signs Vital Signs: 06/22/24 00:18 06/22/24 00:22 Temperature 96.9 F L Temperature Source Temporal Pulse Rate 72 86 Respiratory Rate 14 20 H Blood Pressure 134/104 H 128/107 H Blood Pressure Mean 114 114 Blood Pressure Source Monitor Blood Pressure Position Sitting Pulse Ox 98 100 Oxygen Delivery Method Room Air Room Air Weight Weight: 149 lb 14.629 oz Body Mass Index (BMI) 23.4 Physical Exam Narrative Physical Examination: General: Awake, alert, oriented x 3 and cooperative, initially walking in the ED room, eventually sitting down, intoxicated, intermittently emotionally labile. Skin: Normal color, normal turgor, no icterus, no cyanosis except occasional stage ecchymoses, abrasion. HEENT: AT/NC, EOMI, PERRLA, mildly dry MM, no carotid bruits or JVD noted. Lungs: Mildly diminished, greater bases, appropriate effort, no rales, ronchi or wheezing. Heart: Regular rate and rhythm; no gallop, rub audible. Abdomen: Soft, NTTP, ND, mildly hyperactive BS,+ HM. Extremities: No cyanosis, clubbing, or edema. Neurological: Patient awake, alert, oriented as noted, cognitive function intact; pupils equally reactive to light and accommodation, cranial nerves gross normal, moving all 4 extremities, no focal deficits, strength mildly globally creased secondary to intoxicated status but otherwise preserved. Psychiatric: Affect appears fatigued, emotionally labile, evidence of anxiety and depression. Results Lab / Micro Data 06/22/24 00:15 06/22/24 00:15 Labs: Laboratory Results - last 24 hr 06/22/24 00:15: WBC 11.8 H, RBC 3.90 L, Hgb 13.7, Hct 37.7, MCV 96.7, MCH 35.1 H, MCHC 36.3 H, RDW Std Deviation 40.0, RDW Coeff of Yolanda 11.5 L, Plt Count 101 L, MPV 9.2, Immature Gran % (Auto) 0.300, Neut % (Auto) 47.4, Lymph % (Auto) 44.9 H, [place] % (Auto) 6.8, Eos % (Auto) 0.3, Baso % (Auto) 0.3, Absolute Neuts (auto) 5.6, Absolute Lymphs (auto) 5.28 H, Nucleated RBC % 0, Sodium 138, Potassium 3.3, Chloride 97 L, Carbon Dioxide 26.8, Anion Gap 14, BUN 9, Creatinine 0.63 L, Estim Creat Clear Calc 118.90, Est GFR (MDRD) Non-Af 117, BUN/Creatinine Ratio 14.7, Glucose 83, Calcium 9.1, Total Bilirubin 0.82, AST 177 H, ALT 58 H, Alkaline Phosphatase 111 H, Total Protein 8.3, Albumin 4.2, Globulin 4.1, Albumin/Globulin Ratio 1.0, Serum , Qual NEGATIVE Assessment & Plan Assessment/Plan (1) Admitted to alcohol detoxification center: PLAN: Plan The patient is a 38 y/o F w/ PMHx: Hx Polysubstance abuse (Prior Opiates/fentanyl/heroin previously now on chronic methadone and reports clean status for several years), Seizure disorder (on keppra), EtOH abuse (currently 750 ml whiskey daily), history alcohol withdrawal related seizure/DT, Alcoholic hepatitis/pancreatitis, Hepatitis C, Lupus, Tobacco use->E-cigarette use, Anxiety and Depression who presents to the [facility] ED on 06/22/24 with history of request of alcohol detoxification with decreased recent intake with onset of nausea and emesis on day of presentation, increased emotional lability. #1. Acute EtOH Withdrawal with chronic alcoholic hepatitis as noted w/ History of DT: Will admit to [facility], routine labs obtained in the ED upon presentation as noted. Given interest in sobriety, will initiate and continue on protocol with taper course of Phenobarbital, as needed gabapentin, Catapres, Bentyl, Vistaril, IV fluids, IV antiemetics, Tylenol as needed for pain. Will consult Case management for assistance for transition to next level of rehabilitation care patient does report that she is currently interested in an aggressive 30-day program when she transitions out of the hospital. Mag, phos pending. Maintain on CIWA protocol concurrently. #2. Former Polysubstance abuse with known hepatitis C: Patient reporting history of opiate/fentanyl/heroin use, most recently per record in 2021 admitted snorting at that time, now notes clean since on chronic methadone treatment, known hepatitis C, encourage continued compliance with methadone clinic. Will continue methadone treatment once clarified. #3. Alcoholic hepatitis/pancreatitis, chronic thrombocytopenia alcohol-related: Patient with known alcoholic hepatitis, admission CMP with AST/ALT 177/58, alk phos 111, encouraged sobriety, continue treatment as noted above #1. #4. Anxiety and depression: Not on regimen, likely contributing to polysubstance abuse, would benefit from ongoing counseling evaluation outpatient. #5. Tobacco Abuse-> e-cigarette use: Encouraged cessation, inpatient consultation per RT, NR if desired. #6. Seizure disorder: We will continue patient Keppra regime once dosing clarified, complicated by history of also previous DT/seizure withdrawal with alcohol withdrawal, continue treatment as noted above. #7. Lupus: Patient notes chronic lupus on monthly injections of unclear exact type, encourage continued outpatient follow-up with rheumatology as previously arranged. #8. DVT prophylaxis: Low risk for type of presentation. Charges/Coding Visit Charges Inpatient E&M: 76132 Init Hosp L3
[2024-06-22 01:33] LABS: Differential Comment SCANNED
--- NOTE | 2024-06-22 01:45 | ED.RN ---
0140: PT. REFUSED TO SIGN THE RAMP CONTRACT AT THIS TIME. PT. AMBULATING IN ROOM, UNSTEADY, AND RUMMAGING THROUGH LUGGAGE BAG. PT STATED I NEED TO COUNT MY MONEY. WHEN REDIRECTED PT. REPLIED I JUST NEED A MOMENT. PT. ENCOURAGED TO REMAIN IN BED. 0145: HOSPITALIST AT BEDSIDE. PT. SEATED AT THIS TIME.
[2024-06-22 01:49] LABS: Magnesium 1.5 mg/dL (1.5-2.2); Phosphorus 2.6 mg/dL (2.7-4.5)
[2024-06-22 02:05] LABS: Amphetamine Urine NEGATIVE (<1000 ng/mL); Barbiturate Urine NEGATIVE (< 200 ng/mL); Benzodiazepine Urine NEGATIVE (< 200 ng/mL); Buprenorphine Urine NEGATIVE (< 200 ng/mL); Cocaine Urine NEGATIVE (< 300 ng/mL); Fentanyl, Urine NEGATIVE; Methadone Urine PRESUMPTIVE POSITIVE (< 300 ng/mL); Opiates Urine NEGATIVE (< 300 ng/mL); Oxycodone, Urine NEGATIVE (< 100 ng/mL); PCP Urine NEGATIVE (< 25 ng/mL); THC Urine PRESUMPTIVE POSITIVE (< 50 ng/mL)
[2024-06-22 02:21] VITALS: BMI 24.2
[2024-06-22] MEDS: Phenobarbital 32.4 MG Tablet 64.8 MG PO ×6 (02:41→23:27)
[2024-06-22] MEDS: Ondansetron 8 MG Tablet PO (02:41)
[2024-06-22] MEDS: Gabapentin 300 MG Capsule PO ×2 (02:41→16:17)
[2024-06-22] MEDS: traZODone 100 MG Tablet PO (02:42)
[2024-06-22 02:48] VITALS: BP 135/99; PULSE 91; RESP 16; TEMP 36.3; O2SAT 95
[2024-06-22] MEDS: hydrOXYzine PAM 25 MG Capsule 50 MG PO (06:04)
[2024-06-22] MEDS: Magnesium Sulfate 2 GM in Dextrose 5%-Water (100mL Bag) 100 ML IV (06:05)
[2024-06-22] MEDS: Potassium Phosphate 21 MM in 0.9% Normal Saline (250mL Bag) 250 ML 84 MM IV (06:05)
[2024-06-22] MEDS: Pantoprazole Sodium 40 MG Tablet PO ×3 (06:08→20:55)
[2024-06-22] MEDS: 0.9% Saline Lock 10 ML Syringe IV (06:08)
[2024-06-22] MEDS: Thiamine Hydrochloride 100 MG Tablet PO (11:06)
[2024-06-22] MEDS: Folic Acid 1 MG Tablet PO (11:06)
[2024-06-22] MEDS: levETIRAcetam 500 MG Tablet PO ×2 (11:06→20:55)
[2024-06-22] MEDS: Estradiol 0.5 MG Tablet PO (11:07)
[2024-06-22] MEDS: Methadone 10 MG Tablet 145 MG PO (11:08)
--- NOTE | 2024-06-22 11:16 | ADDICTION ---
Attempted to meet with pt today. She was not interested in discussing her hx and complete the assessments. Will meet with patient tomorrow when she is feeling a little better. .
--- NOTE | 2024-06-22 11:41 | PCM.PN.HOSP ---
Subjective Subjective Saw patient at bedside this morning. Patient was sitting up in bed but did appear somewhat somnolent but was otherwise answering questions with short appropriate responses. Denied any withdrawal symptoms currently. No other acute concerns today. Objective Data Objective Data Vital Signs: Vital Signs Temp Pulse Resp BP Pulse Ox O2 Del Method 97.3 F L 91 16 135/99 H 95 Room Air 06/22/24 02:48 06/22/24 02:48 06/22/24 02:48 06/22/24 02:48 06/22/24 02:48 06/22/24 07:50 Oxygen Delivery Method Room Air Weight: 68 kg Body Mass Index (BMI) 24.2 Intake & Output: Intake and Output for Last 24 Hours 06/20/24 06/21/24 06/22/24 23:59 23:59 23:59 Intake Total 361 / 361 Balance 361 / 361 Lab / Micro Data 06/22/24 00:15 06/22/24 00:15 Labs: Laboratory Results - last 24 hr 06/22/24 00:15: WBC 11.8 H, RBC 3.90 L, Hgb 13.7, Hct 37.7, MCV 96.7, MCH 35.1 H, MCHC 36.3 H, RDW Std Deviation 40.0, RDW Coeff of Yolanda 11.5 L, Plt Count 101 L, MPV 9.2, Immature Gran % (Auto) 0.300, Neut % (Auto) 47.4, Lymph % (Auto) 44.9 H, [place] % (Auto) 6.8, Eos % (Auto) 0.3, Baso % (Auto) 0.3, Absolute Neuts (auto) 5.6, Absolute Lymphs (auto) 5.28 H, Nucleated RBC % 0, Differential Comment SCANNED, Sodium 138, Potassium 3.3, Chloride 97 L, Carbon Dioxide 26.8, Anion Gap 14, BUN 9, Creatinine 0.63 L, Estim Creat Clear Calc 118.90, Est GFR (MDRD) Non-Af 117, BUN/Creatinine Ratio 14.7, Glucose 83, Calcium 9.1, Phosphorus 2.6 L, Magnesium 1.5, Total Bilirubin 0.82, AST 177 H, ALT 58 H, Alkaline Phosphatase 111 H, Total Protein 8.3, Albumin 4.2, Globulin 4.1, Albumin/Globulin Ratio 1.0, Serum , Qual NEGATIVE, Ethyl Alcohol 374.0 H* 06/22/24 01:35: Urine Opiates Screen NEGATIVE, U Buprenorphine Qual NEGATIVE, Ur Oxycodone Screen NEGATIVE, Urine Methadone Screen PRESUMPTIVE POSITIVE, Urine Fentanyl Screen NEGATIVE, Ur Barbiturates Screen NEGATIVE, Ur Phencyclidine Scrn NEGATIVE, Ur Amphetamines Screen NEGATIVE, U Benzodiazepines Scrn NEGATIVE, Urine Cocaine Screen NEGATIVE, U Cannabinoids Screen PRESUMPTIVE POSITIVE Physical Exam Const alert, oriented x3, no apparent distress and average body habitus Constitutional Narrative: Younger female, somewhat unkempt appearing, mildly somnolent appearing but otherwise sitting back comfortably in bed and answering questions appropriately. General Appearance: cooperative and comfortable HEENT normocephalic, head/scalp atraumatic, hearing grossly normal bilaterally, nasal mucous membranes and turbinates normal and moist oral mucous membranes Eyes PERRL, EOMs intact bilaterally and conjunctivae normal Neck full ROM Chest inspection of chest normal Resp normal respiratory effort, normal air movement, no use of accessory muscles and clear to auscultation bilaterally Cardio regular rate, regular rhythm, no murmurs and peripheral pulses 2+ throughout GI normal to inspection, nondistended, normoactive bowel sounds, soft to palpation, non-tender and non-distended Back/Spine normal ROM Extremity normal to inspection, full ROM and no pedal edema Skin no rashes or lesions noted Psych mental status grossly normal Assessment & Plan Assessment/Plan (1) Alcohol abuse: (2) Desire for detoxification: PLAN: Plan Patient is a 38-year-old female who presented to [facility] ED on 06/22/2024 for alcohol detoxification. 1. Alcohol abuse with withdrawal and desire for detoxification, history of DTs ? Addiction medicine following. Drinks 1/5 of vodka daily. Intoxicated on presentation with alcohol level 364. Given high risk for detox, started on phenobarbital taper with other as the medications per alcohol withdrawal order set. Adequate symptom control, continue these medications. Appreciate addiction medicine recommendations. 2. Former polysubstance abuse with known hepatitis C ? Patient with reported history of opiate/fentanyl/heroin use most recently back in 2021. Has been clean since then and sees methadone clinic, is on methadone 145 mg daily that was verified to pharmacy. Continue home methadone. 3. Chronic alcohol hepatitis ? LFTs mildly elevated on admit, presume secondary to alcoholic hepatitis. No need to monitor further while inpatient, outpatient follow-up. 4. Seizure disorder ? Continue home levetiracetam. 5. Tobacco abuse ? Nicotine patch ordered per patient request. Discussed cessation on discharge. DVT prophylaxis: Low risk, ambulate CODE STATUS: Full code, verified Expected disposition: Home, 2 to 3 days Total clinical time spent by myself addressing the patient's medical issues, reviewing all the data, and collaborating with patient's care team: 35 minutes. Charges/Coding Visit Charges Inpatient E&M: 74864 Subs Hosp L2
[2024-06-22 16:07] VITALS: BP 111/66; PULSE 88; RESP 14; TEMP 37.8; O2SAT 96
[2024-06-22] MEDS: Acetaminophen 325 MG Tablet 650 MG PO (16:16)
[2024-06-22] MEDS: Dicyclomine 10 MG Capsule 20 MG PO (16:17)
[2024-06-22 20:30] VITALS: BP 111/67; PULSE 87; RESP 15; TEMP 36.4; O2SAT 88
[2024-06-23] VITALS (9 sets, daily range): BP systolic 110–123; BP diastolic 70–87; PULSE 70–89; RESP 16–17; TEMP 36.6–37; O2SAT 90–96
[2024-06-23] MEDS: Phenobarbital 32.4 MG Tablet 64.8 MG PO ×5 (02:47→18:35)
[2024-06-23] MEDS: Ibuprofen 600 MG Tablet PO ×2 (02:52→20:03)
[2024-06-23] MEDS: Folic Acid 1 MG Tablet PO (07:58)
[2024-06-23] MEDS: Methadone 10 MG Tablet 145 MG PO (07:58)
[2024-06-23] MEDS: Multivitamins,Ther W-Minerals Tablet 1 TABLET PO (07:59)
[2024-06-23] MEDS: Thiamine Hydrochloride 100 MG Tablet PO (07:59)
--- NOTE | 2024-06-23 09:17 | PCM.PN.HOSP ---
Reason for Visit Reason for Visit: Diagnoses Alcohol abuse, uncomplicated (06/22/24) Subjective Subjective Saw patient at bedside this morning. Patient appeared more alert and calm this morning. She stated her withdrawal symptoms were better controlled today and she was able to eat this morning for the first time since admission. States that she is planning to go to an inpatient alcohol treatment center on discharge. No other new concerns this morning. Objective Data Objective Data Vital Signs: Vital Signs Temp Pulse Resp BP Pulse Ox O2 Del Method 98.0 F 70 16 110/80 93 Room Air 06/23/24 08:05 06/23/24 08:05 06/23/24 08:05 06/23/24 08:05 06/23/24 08:05 06/23/24 08:05 Oxygen Delivery Method Room Air Weight: 68 kg Body Mass Index (BMI) 24.2 Intake & Output: Intake and Output for Last 24 Hours 06/21/24 06/22/24 06/23/24 23:59 23:59 23:59 Intake Total 361 / 361 Balance 361 / 361 Lab / Micro Data 06/22/24 00:15 06/22/24 00:15 Physical Exam Const alert, oriented x3, no apparent distress and average body habitus Constitutional Narrative: Younger female, somewhat unkempt appearing, energy improved today and patient more calm, sitting back comfortably in bed and answering questions appropriately. General Appearance: cooperative and comfortable HEENT normocephalic, head/scalp atraumatic, hearing grossly normal bilaterally, nasal mucous membranes and turbinates normal and moist oral mucous membranes Eyes PERRL, EOMs intact bilaterally and conjunctivae normal Neck full ROM Chest inspection of chest normal Resp normal respiratory effort, normal air movement, no use of accessory muscles and clear to auscultation bilaterally Cardio regular rate, regular rhythm, no murmurs and peripheral pulses 2+ throughout GI normal to inspection, nondistended, normoactive bowel sounds, soft to palpation, non-tender and non-distended Back/Spine normal ROM Extremity normal to inspection, full ROM and no pedal edema Skin no rashes or lesions noted Psych mental status grossly normal Assessment & Plan Assessment/Plan (1) Alcohol abuse: (2) Desire for detoxification: PLAN: Plan Patient is a 38-year-old female who presented to [facility] ED on 06/22/2024 for alcohol detoxification. 1. Alcohol abuse with withdrawal and desire for detoxification, history of DTs ? Addiction medicine following. Drinks 1/5 of vodka daily. Intoxicated on presentation with alcohol level 364. Given high risk for detox, started on phenobarbital taper with other as the medications per alcohol withdrawal order set. Has had good symptom control, continue these medications. Per patient, is wanting to go to inpatient alcohol rehab on discharge, appreciate addiction medicine assistance. 2. Former polysubstance abuse with known hepatitis C ? Patient with reported history of opiate/fentanyl/heroin use most recently back in 2021. Has been clean since then and sees methadone clinic, is on methadone 145 mg daily that was verified to pharmacy. Continue home methadone. 3. Chronic alcohol hepatitis ? LFTs mildly elevated on admit, presume secondary to alcoholic hepatitis. No need to monitor further while inpatient, outpatient follow-up. 4. Seizure disorder ? Continue home levetiracetam. 5. Tobacco abuse ? Nicotine patch ordered per patient request. Discussed cessation on discharge. DVT prophylaxis: Low risk, ambulate CODE STATUS: Full code, verified Expected disposition: Inpatient alcohol treatment center, 1 to 2 days Total clinical time spent by myself addressing the patient's medical issues, reviewing all the data, and collaborating with patient's care team: 25 minutes. Charges/Coding Visit Charges Inpatient E&M: 74595 Subs Hosp L1
[2024-06-23] MEDS: levETIRAcetam 500 MG Tablet PO (10:18)
[2024-06-23] MEDS: Pantoprazole Sodium 40 MG Tablet PO (10:18)
[2024-06-23] MEDS: Estradiol 0.5 MG Tablet PO (10:18)
--- NOTE | 2024-06-23 11:37 | ADDICTION ---
Met with pt to complete RAMP assessments. Pt was actively participating. She reports that she would like to go to inpatient treatment but would like to stay on her methadone. A referral was placed for [facility]. They are considering accepting her with the methadone. They will screen her today. If accepted she will be able to admit Thursday morning. They will provide transportation if accepted.
--- NOTE | 2024-06-23 15:09 | CHAPLAIN ---
Type of Pastoral Visit ___ Initial Visit ___ Follow-up Visit ___ On-call Visit ___ General Patient Visit ___ Spiritual Assessment ___ Family Conference ___ Bereavement ___ Rapid Response ___ Code Blue ___ Other (describe below) Pastoral Care Referral From ___ Patient ___ Family ___ Nurse ___ Physician ___ Science Intern ___ Vending Route Driver ___ Other (describe below) Sacrament/Intervention ___ Active listening ___ Anointing ___ Yazidi ___ Bereavement ___ Communion ___ Katie exploration ___ ___ Life review ___ Prayer ___ Reconciliation ___ Sacrament of Sick ___ Supportive presence ___ Wedding ___ Other (describe below) Pastoral Comments patient awoke easily to her name but appeared very drowsy and she stated that she just needed to rest and was not up to talking; offered a visit for tommorrow and patient agreed
[2024-06-23] MEDS: Bisacodyl 10 MG Suppository RC (20:03)
[2024-06-23] MEDS: Albuterol 2.5 MG/3 ML VIAL.NEB. INHALATION (20:05)
[2024-06-24] MEDS: Pantoprazole Sodium 40 MG Tablet PO ×3 (00:04→21:44)
[2024-06-24] MEDS: levETIRAcetam 500 MG Tablet PO ×3 (00:04→21:44)
[2024-06-24] MEDS: Phenobarbital 32.4 MG Tablet 64.8 MG PO ×6 (00:05→22:54)
[2024-06-24] MEDS: Acetaminophen 325 MG Tablet 650 MG PO ×3 (00:14→19:54)
[2024-06-24 03:26] VITALS: BP 103/75; PULSE 69; RESP 16; TEMP 36.6; O2SAT 95
[2024-06-24 09:00] VITALS: BP 129/96; PULSE 83; RESP 18; TEMP 36.9; O2SAT 97
[2024-06-24] MEDS: Methadone 10 MG Tablet 145 MG PO (09:05)
[2024-06-24] MEDS: Folic Acid 1 MG Tablet PO (09:05)
[2024-06-24] MEDS: Estradiol 0.5 MG Tablet PO (09:05)
[2024-06-24] MEDS: Thiamine Hydrochloride 100 MG Tablet PO (09:05)
[2024-06-24] MEDS: Multivitamins,Ther W-Minerals Tablet 1 TABLET PO (09:05)
[2024-06-24 10:09] VITALS: PULSE 74; RESP 16
[2024-06-24] MEDS: Albuterol 2.5 MG/3 ML VIAL.NEB. INHALATION (10:09)
[2024-06-24] MEDS: Ibuprofen 600 MG Tablet PO ×2 (10:29→21:48)
[2024-06-24] MEDS: guaiFENesin 10 ML UDC (200MG/10ML) PO (10:29)
--- NOTE | 2024-06-24 10:29 | PN.HOSP_ITS ---
Reason for Visit Reason for Visit: Diagnoses Alcohol abuse, uncomplicated (06/22/24) Subjective Subjective Saw patient at bedside this morning. Patient appeared similar yesterday, was laying back in bed comfortably and in no acute distress. Noted that her withdrawal symptoms have been well-controlled. No other new concerns this morning. Objective Data Objective Data Vital Signs: Vital Signs Temp Pulse Resp BP Pulse Ox O2 Del Method 98.5 F 83 18 129/96 H 97 Room Air 06/24/24 09:00 06/24/24 09:00 06/24/24 09:00 06/24/24 09:00 06/24/24 09:00 06/24/24 09:00 Oxygen Delivery Method Room Air Weight: 68 kg Body Mass Index (BMI) 24.2 Intake & Output: Intake and Output for Last 24 Hours 06/22/24 06/23/24 06/24/24 23:59 23:59 23:59 Intake Total 361 / 361 Balance 361 / 361 Lab / Micro Data 06/22/24 00:15 06/22/24 00:15 Physical Exam Const alert, oriented x3, no apparent distress and average body habitus Constitutional Narrative: Younger female, somewhat unkempt appearing, energy remains improved and patient calm, sitting back comfortably in bed and answering questions appropriately. General Appearance: cooperative and comfortable HEENT normocephalic, head/scalp atraumatic, hearing grossly normal bilaterally, nasal mucous membranes and turbinates normal and moist oral mucous membranes Eyes PERRL, EOMs intact bilaterally and conjunctivae normal Neck full ROM Chest inspection of chest normal Resp normal respiratory effort, normal air movement, no use of accessory muscles and clear to auscultation bilaterally Cardio regular rate, regular rhythm, no murmurs and peripheral pulses 2+ throughout GI normal to inspection, nondistended, normoactive bowel sounds, soft to palpation, non-tender and non-distended Back/Spine normal ROM Extremity normal to inspection, full ROM and no pedal edema Skin no rashes or lesions noted Psych mental status grossly normal Assessment & Plan Assessment/Plan (1) Alcohol abuse: (2) Desire for detoxification: PLAN: Plan Patient is a 38-year-old female who presented to [facility] ED on 06/22/2024 for alcohol detoxification. 1. Alcohol abuse with withdrawal and desire for detoxification, history of DTs ? Addiction medicine following. Drinks 1/5 of vodka daily. Intoxicated on presentation with alcohol level 364. Given high risk for detox, started on phenobarbital taper with other as the medications per alcohol withdrawal order set. Has had good symptom control, continue these medications. Patient wants to do inpatient alcohol rehab on discharge but unfortunately per addiction medicine, there is difficulty finding a facility that will take her as she is on methadone. If a facility cannot be found for her, we will plan to discharge home in the next 1 to 2 days. 2. Former polysubstance abuse with known hepatitis C ? Patient with reported history of opiate/fentanyl/heroin use most recently back in 2021. Has been clean since then and sees methadone clinic, is on methadone 145 mg daily that was verified to pharmacy. Continue home methadone. 3. Chronic alcohol hepatitis ? LFTs mildly elevated on admit, presume secondary to alcoholic hepatitis. No need to monitor further while inpatient, outpatient follow-up. 4. Seizure disorder ? Continue home levetiracetam. 5. Tobacco abuse ? Nicotine patch ordered per patient request. Discussed cessation on discharge. DVT prophylaxis: Low risk, ambulate CODE STATUS: Full code, verified Expected disposition: Inpatient alcohol treatment center versus home, 1 to 2 days Total clinical time spent by myself addressing the patient's medical issues, reviewing all the data, and collaborating with patient's care team: 25 minutes. Charges/Coding Visit Charges Inpatient E&M: 77877 Subs Hosp L1
--- NOTE | 2024-06-24 12:41 | CHAPLAIN ---
Type of Pastoral Visit ___ Initial Visit _x__ Follow-up Visit ___ On-call Visit ___ General Patient Visit ___ Spiritual Assessment ___ Family Conference ___ Bereavement ___ Rapid Response ___ Code Blue ___ Other (describe below) Pastoral Care Referral From _x__ Patient ___ Family ___ Nurse ___ Physician ___ Furniture Dipper ___ Manager Technical Sales ___ Other (describe below) Sacrament/Intervention ___ Active listening ___ Anointing ___ Yarsani ___ Bereavement ___ Communion ___ Katie exploration ___ ___ Life review ___ Prayer ___ Reconciliation ___ Sacrament of Sick _x__ Supportive presence ___ Wedding ___ Other (describe below) Pastoral Comments second day and second visit attempt to this patient; pt is awake but looking drowsy; pt says that she had someone pray for me already today; pt denies needs and any desire to talk with anyone again; asked if patient needed something or just wanted to rest and she said 'rest and be alone'; pt says that she will have support from family after she leaves the hospital; offer of future support as desired by the patient
[2024-06-24] MEDS: Bisacodyl 10 MG Suppository RC (13:54)
[2024-06-24 14:26] VITALS: BP 117/67; PULSE 82; RESP 18; TEMP 36.9; O2SAT 98
[2024-06-24 19:45] VITALS: BP 118/90; PULSE 90; RESP 15; TEMP 38.1; O2SAT 97
[2024-06-24] MEDS: Gabapentin 300 MG Capsule PO (19:54)
[2024-06-24] MEDS: 0.9% Saline Lock 10 ML Syringe IV (19:55)
[2024-06-24 22:54] VITALS: BP 125/101; PULSE 91; RESP 16; TEMP 37.5; O2SAT 98
[2024-06-25] MEDS: Phenobarbital 32.4 MG Tablet 64.8 MG PO (04:50)
[2024-06-25] MEDS: hydrOXYzine PAM 25 MG Capsule 50 MG PO (04:51)
[2024-06-25 04:54] VITALS: BP 134/111; PULSE 90; RESP 17; TEMP 37.2; O2SAT 98
[2024-06-25] MEDS: Acetaminophen 325 MG Tablet 650 MG PO (05:04)
--- NOTE | 2024-06-25 05:19 | NURSING ---
Pt requested to leave AMA. Pt broke into her tote to get her phone. Pt is aware she was not supposed to have her phone or get into her totes. Pt has been communicating with her who she says will be here at 0600 to pick her up. Pt says that she needs to be at her methadone clinic this morning in order to receive her 30 day supply.
--- NOTE | 2024-06-25 07:18 | DCINST_ITS ---
Discharge Instructions DC O2, CPAP, BIPAP needs Home O2 Discharge instructions: No Follow Up Care Test Results: Test results from this visit will be discussed in further detail at your follow- up appointment, if applicable. Discharge Plan Admission Admit Date/Time: 06/22/24 01:30 Primary Reason for Your Visit: ETOH ramp Attending Provider: Meño Reece Primary Care Provider: Tori Ashby Consulting Providers: Elsa Capone Discharge Orders/Prescriptions Prescriptions: Continued estradiol 0.5 mg Tablet 0.5 mg PO DAILY Rx Instructions: off 5 days; repeat cycle albuterol sulfate [Ventolin HFA] 90 mcg/actuation Hfa Aerosol Inhaler 90 mcg INHALATION Q6H PRN (Reason: Shortness Of Breath Or Wheezing) levetiracetam 500 mg tablet 500 mg PO BID methadone 10 mg tablet 145 mg PO DAILY Referrals / Follow Up: Tori Ashby [Other] Tori Ashby [Other] Disposition Disposition (needs filled in before D/C Order can be placed): Home, Self Care
--- NOTE | 2024-06-25 07:19 | DS.PCM_ITS ---
Providers Date of Admission: 06/22/24 Date of Discharge: 06/25/24 Primary Care Physician: Tori Ashby Reason For Visit: ETOH DETOXIFICATION Diagnosis Discharge Diagnosis (1) Alcohol abuse: Status: Acute Code(s): F10.10 - Alcohol abuse, uncomplicated (2) Desire for detoxification: Status: Acute Medications at Discharge Home Medications albuterol sulfate 90 mcg/actuation aerosol inhaler (Ventolin HFA) 90 mcg inhalation Q6H PRN Shortness Of Breath Or Wheezing 10/25/21 estradiol 0.5 mg tablet 0.5 mg PO DAILY Check with primary doctor 10/25/21 levetiracetam 500 mg tablet 500 mg PO BID 06/22/24 methadone 10 mg tablet 145 mg PO DAILY hx polysubstance abuse 06/23/24 Hospital Course Operations None Procedures None Summary of Care Provided Minutes Spent on Discharge: 25 Hospital Course: Patient is a 38-year-old female who presented to [facility] ED on 06/22/2024 for alcohol detoxification. Hospital course as noted below. Patient opted to leave AGAINST MEDICAL ADVICE on 06/25. 1. Alcohol abuse with withdrawal and desire for detoxification, history of DTs ? Addiction medicine followed. Drinks 1/5 of vodka daily. Intoxicated on presentation with alcohol level 364. Given high risk for detox, started on phenobarbital taper with other as the medications per alcohol withdrawal order set. Had good symptom control with these medications. Patient wanted to do inpatient alcohol rehab on discharge but unfortunately per addiction medicine, there was difficulty finding a facility that would take her as she is on methadone. Patient opted to leave AGAINST MEDICAL ADVICE on 06/25. 2. Former polysubstance abuse with known hepatitis C ? Patient with reported history of opiate/fentanyl/heroin use most recently back in 2021. Has been clean since then and sees methadone clinic, is on methadone 145 mg daily that was verified to pharmacy. Continue home methadone. 3. Chronic alcohol hepatitis ? LFTs mildly elevated on admit, presume secondary to alcoholic hepatitis. No need to monitor further while inpatient, outpatient follow-up. 4. Seizure disorder ? Continue home levetiracetam. 5. Tobacco abuse ? Nicotine patch in place while inpatient per patient request. Discussed cessation on discharge. Total clinical time spent by myself addressing the patient's medical issues, reviewing all the data, and collaborating with patient's care team: 25 minutes. Physical Exam Const alert, oriented x3, no apparent distress and average body habitus Constitutional Narrative: Younger female, somewhat unkempt appearing, energy remains improved and patient calm, sitting back comfortably in bed and answering questions appropriately. General Appearance: cooperative and comfortable HEENT normocephalic, head/scalp atraumatic, hearing grossly normal bilaterally, nasal mucous membranes and turbinates normal and moist oral mucous membranes Eyes PERRL, EOMs intact bilaterally and conjunctivae normal Neck full ROM Chest inspection of chest normal Resp normal respiratory effort, normal air movement, no use of accessory muscles and clear to auscultation bilaterally Cardio regular rate, regular rhythm, no murmurs and peripheral pulses 2+ throughout GI normal to inspection, nondistended, normoactive bowel sounds, soft to palpation, non-tender and non-distended Back/Spine normal ROM Extremity normal to inspection, full ROM and no pedal edema Skin no rashes or lesions noted Psych mental status grossly normal Weight / BMI Weight Weight: 68 kg Body Mass Index (BMI) 24.2 ABG / Lab / Microbiology Data 06/22/24 00:15 06/22/24 00:15 D/C Instructions DC O2, CPAP, BIPAP Needs Home O2 Discharge instructions: No Meaningful Use Info Meaningful Use Meaningful Use Diagnoses (Choose all that apply): None applicable Ischemic Stroke Statin Dosing Therapy Reference: STATIN DOSE THERAPY REFERENCE: * Patients > 75 years receive moderate or high dose statin therapy. * Patients 75 years or YOUNGER should receive HIGH intensity statin dose unless contraindicated. You will be required to document reason for non-treatment if statin daily dose does not meet guidelines. HIGH DOSE STATIN THERAPY DAILY Atorvastatin > than or = to 40 mg Rosuvastatin > than or = to 20 mg Amlodipine + Atorvastatin > than or = to 2.5/40 mg Ezetimibe + Simvastatin 10/80 mg Simvastatin 80mg Discharge Plan Admission Admit Date/Time: 06/22/24 01:30 Primary Reason for Your Visit: ETOH ramp Attending Provider: Meño Reece Primary Care Provider: Tori Ashby Consulting Providers: Elsa Capone Discharge Orders/Prescriptions Prescriptions: Continued estradiol 0.5 mg Tablet 0.5 mg PO DAILY Rx Instructions: off 5 days; repeat cycle albuterol sulfate [Ventolin HFA] 90 mcg/actuation Hfa Aerosol Inhaler 90 mcg INHALATION Q6H PRN (Reason: Shortness Of Breath Or Wheezing) levetiracetam 500 mg tablet 500 mg PO BID methadone 10 mg tablet 145 mg PO DAILY Referrals / Follow Up: Tori Ashby [Other] Tori Ashby [Other] Disposition Disposition (needs filled in before D/C Order can be placed): Home, Self Care Charges/Coding Visit Charges Inpatient E&M: 73141 Disch Hosp >30min
== END 2024-06-25 06:02 | disposition left against medical advice (07) | DRG 770 ==
LOC: ED 01:17 → MS3 01:44
PROVIDERS: Admitting Provider Family Medicine; Emergency Provider Emergency Medicine; Visit Provider Hospitalist
DX: F10.139 Alcohol abuse with withdrawal, unspecified (principal); F17.290 Nicotine dependence, other tobacco product, uncomplicated; K70.10 Alcoholic hepatitis without ascites; G40.909 Epilepsy, unspecified, not intractable, without status epilepticus; M32.9 Systemic lupus erythematosus, unspecified; F32.A Depression, unspecified; F41.9 Anxiety disorder, unspecified; Z90.710 Acquired absence of both cervix and uterus; Y90.8 Blood alcohol level of 240 mg/100 ml or more
CPT/HCPCS: 80053; 80307; 82077; 83735; 84100; 84703; 85025; 94640; 99285; 99406; A4216

== ENCOUNTER 2024-07-14 22:49 | Inpatient (IN) | payer MEDICAID, SELFPAY ==
[2024-07-14 22:50] VITALS: BP 116/77; PULSE 100; RESP 15; TEMP 36.2; O2SAT 96
--- NOTE | 2024-07-14 23:01 | ED.RN ---
Pt dropped off by stating pt wanting to detox. Pt and parked on the ramp for awhile arguing about pt staying or not. This nurse called security and another staff to bay with this nurse. Explained to pt that the detox program is a voluntary program. Pt expressing concerns that pt has been drinking all day and was googling how to hang herself and was threatening to jump in front of traffic. Pt would not say either way if she felt that or not. Pt getting in and out of the car numerous times, throwing belonging in and out of the vehicle numerous times. Pt then became to chug a can of beer in front of this nurse and security. Pt then gave beer to and was willing to get in the wheelchair. Pt assisted by UPTWISTER TENDER into triage bay. Pt expressing concern to this nurse and security about pt safety and how pt has a lot going on. Pt expressing that he needs to take care of himself and their 6 year old child. expressing that pt has been escalating all day and has been in and out of rehab and been going to a methadone clinic. This nurse explained to that the doctor would be updated and if it was ok with pt we could update him when we know more. in agreement.
--- NOTE | 2024-07-14 23:50 | EX.ED.DYSGE1 ---
HPI History of Present Illness Chief Complaint: ETOH Intox Narrative Narrative: Chief complaint and HPI: Alcohol intoxication and suicidal ideation. History is limited from patient's secondary to alcohol intoxication therefore history obtained by and medical record. Patient is a 38-year-old female with past medical history of drug and alcohol abuse, seizure disorder, hepatitis C who presents for evaluation of alcohol intoxication and suicidal ideation. I personally called her on the telephone and he states that the patient was requesting alcohol detox as well as endorsing suicidal ideation. He states that prior to arrival she told him that she was looking up ways on her phone to hang herself. On arrival outside in the parking lot patient endorsed to nursing staff that she would like alcohol detox after she drank an entire beer. On presentation in the room, patient does not answer my questions. She is intoxicated. Review of systems: See HPI Medications: As listed on the chart Allergies: As listed on the chart PFSH: Per chart Vital signs: As listed on the chart. Reviewed. Physical exam: Gen: Fatigued but arouses to vocal and physical stimulation, NAD but intoxicated Head: Normocephalic, atraumatic Eyes: No sclera icterus, conjunctiva clear ENT: Dry mucous membranes Neck: Trachea midline, No JVD CV: RRR, no murmurs, no peripheral edema Resp: Lungs CTA BL, no w/r/c GI: Abd soft, non-distended, non-tender, no r/r/g Musc: Moves all extremities, no deformity Skin: Warm, dry Neuro: Fatigued, unable to assess orientation as she does not answer my questions, grossly intact PFSH PFS Medical History Lupus Nicotine-filled electronic cigarette user Seizure disorder Abdominal hernia Alcoholic pancreatitis Alcoholic hepatitis Hepatitis C Opiate dependence Substance abuse Alcoholism Home Medications ?Medication ?Instructions ?Recorded ?Last Taken ?Type albuterol sulfate 90 mcg/actuation 90 mcg inhalation Q6H PRN 10/25/21 Unknown History aerosol inhaler (Ventolin HFA) Shortness Of Breath Or Wheezing estradiol 0.5 mg tablet 0.5 mg PO DAILY Check with primary 10/25/21 Unknown History doctor levetiracetam 500 mg tablet 500 mg PO BID 06/22/24 Unknown History methadone 10 mg tablet 145 mg PO DAILY hx polysubstance 06/23/24 Unknown History abuse phenobarbital 97.2 mg tablet 97.2 mg PO QHS 07/15/24 Unknown History Allergy/AdvReac Type Severity Reaction Status Date / Time No Known Allergies Allergy Verified 07/14/24 22:50 Family History (Updated 06/22/24 @ 01:[address] Elsa Capone MD) Father Alcoholism Surgical History H/O abdominoplasty H/O: hysterectomy Social History (Updated 06/22/24 @ 01:[address] Elsa Capone MD) household members: significant other Smoking Status: Former smoker Electronic Cigarette Use: with nicotine alcohol intake: current alcohol intake frequency: 3 or more drinks per day Alcohol type: hard liquor details: Daily heavy alcohol use substance use type: other details: Former heroin/fentanyl/opiate abuse, reports clean status, on methadone. EXAM Physical Exam Const Vital Signs: 07/14/24 22:50 07/15/24 00:14 07/15/24 00:14 Temperature 97.2 F L 98 F Temperature Source Temporal Oral Pulse Rate 100 80 80 Respiratory Rate 15 18 16 Blood Pressure 116/77 107/80 107/80 Blood Pressure Mean 90 89 89 Pulse Ox 96 98 98 Oxygen Delivery Method Room Air 07/15/24 01:00 07/15/24 01:28 07/15/24 02:00 Temperature Temperature Source Pulse Rate 87 87 84 Respiratory Rate 16 20 H 18 Blood Pressure 101/72 89/62 L 90/58 L Blood Pressure Mean 81 71 68 Pulse Ox 98 92 96 Oxygen Delivery Method Room Air Room Air Room Air 07/15/24 03:00 Temperature Temperature Source Pulse Rate 80 Respiratory Rate 19 H Blood Pressure 93/64 Blood Pressure Mean 73 Pulse Ox 98 Oxygen Delivery Method Room Air MDM MDM MDM Narrative Medical decision making narrative: 38-year-old female with past medical history of drug and alcohol abuse, seizure disorder, hepatitis C who presents for evaluation of alcohol intoxication and suicidal ideation. History unable to be obtained by patient as she is not answering my questions and intoxicated. Per over the telephone, patient was endorsing wishes for alcohol detox. She endorsed it to nursing staff as well. states that patient was endorsing suicidal ideation and looking up ways to hang herself on her phone. Differential diagnosis includes but is not limited to alcohol intoxication, substance abuse, suicidal ideation, electrolyte abnormality, dehydration, alcohol detox. At this point in time, I cannot verbally get patient to request alcohol detox. However she will be pink slipped given her report of suicidal ideation. NS bolus ordered. Laboratory workup ordered including. Patient placed on suicidal and seizure precautions. Placed on CIWA. On reevaluation, patient more awake. Ambulated to the bathroom. Shortly after returning from the restroom, patient began having seizures. Seizures resolved without intervention however will give Ativan and patient will be loaded with Keppra. Unclear if seizures are secondary to alcohol versus seizure disorder. EKG reviewed see below. CBC without leukocytosis or anemia. Patient does have elevated MCV, likely secondary to her alcohol abuse. CMP without significant electrolyte abnormality or JOVANNY. Patient does have mild AST transaminitis of 88. Likely secondary to her alcohol abuse. Magnesium unremarkable. Urine drug screen positive for methadone, barbiturates, cannabinoids. Urine negative. Salicylate and acetaminophen unremarkable. Ethanol level 296. UA negative for UTI. Patient's blood pressure has been soft since Ativan ordered. She has not had any more seizures. Will give another NS bolus and monitor. Patient blood pressure improving with fluids. On reevaluation, patient is sleeping. She is arousable. She does not answer majority of my questions but states that she does want help with alcohol. Patient will warrant admission. Patient was discussed with the hospitalist, Dr. Bone. Patient admitted to the ICU. EKG: Interpreted by me/EM physician: EKG shows normal sinus rhythm with a heart rate of 94. No acute ischemic changes. 35 minutes of critical care time utilized in managing the patient. This is due to high probability of and deterioration of the patient based on the patient's condition and excludes any separately billable procedures. Impression: 1. Alcohol intoxication, requesting alcohol detox 2. Seizures, epilepsy versus alcohol 3. Suicidal ideation 4. Alcoholic transaminitis 5. Polysubstance abuse Lab Data Labs: Laboratory Results - last 24 hr 07/14/24 07/14/24 07/15/24 00:01 00:08 00:08 WBC 6.5 RBC 3.63 L Hgb 12.9 Hct 36.9 L MCV 101.7 H MCH 35.5 H MCHC 35.0 RDW Std Deviation 47.6 H RDW Coeff of Yolanda 12.8 Plt Count 150 MPV 8.4 Immature Gran % (Auto) 0.500 Neut % (Auto) 39.7 L Lymph % (Auto) 50.0 H [place] % (Auto) 8.4 Eos % (Auto) 0.8 Baso % (Auto) 0.6 Absolute Neuts (auto) 2.6 Absolute Lymphs (auto) 3.27 Nucleated RBC % 0 Sodium Cancelled Potassium Cancelled Chloride Cancelled Carbon Dioxide Cancelled Anion Gap Cancelled BUN Cancelled Creatinine Cancelled Estim Creat Clear Calc Cancelled Est GFR (MDRD) Non-Af Cancelled BUN/Creatinine Ratio Cancelled Glucose Cancelled Calcium Cancelled Magnesium Cancelled Total Bilirubin Cancelled Direct Bilirubin Cancelled AST Cancelled ALT Cancelled Alkaline Phosphatase Cancelled Total Protein Cancelled Albumin Cancelled Globulin Cancelled Serum , Qual NEGATIVE Urine Color Straw Urine Clarity Clear Urine pH 6.0 Ur Specific [place] 1.010 Urine Protein Negative Urine Glucose (UA) Normal Urine Ketones Negative Urine Occult Blood Negative Urine Nitrite Negative Urine Bilirubin Negative Urine Urobilinogen Normal Ur Leukocyte Esterase Negative Urine RBC 0 SEEN Urine WBC 0 SEEN Ur Squamous Epith Cells 5-10 SEEN Urine Bacteria 2+ Hyaline Casts 0-5 SEEN Urine Mucus 0 SEEN Salicylates < 0.5 L Urine Opiates Screen NEGATIVE U Buprenorphine Qual NEGATIVE Ur Oxycodone Screen NEGATIVE Urine Methadone Screen PRESUMPTIVE POSITIVE Urine Fentanyl Screen NEGATIVE Acetaminophen < 5.0 L Ur Barbiturates Screen PRESUMPTIVE POSITIVE Ur Phencyclidine Scrn NEGATIVE Ur Amphetamines Screen NEGATIVE U Benzodiazepines Scrn NEGATIVE Urine Cocaine Screen NEGATIVE U Cannabinoids Screen PRESUMPTIVE POSITIVE Ethyl Alcohol 296.0 H 07/15/24 01:00 WBC RBC Hgb Hct MCV MCH MCHC RDW Std Deviation RDW Coeff of Yolanda Plt Count MPV Immature Gran % (Auto) Neut % (Auto) Lymph % (Auto) [place] % (Auto) Eos % (Auto) Baso % (Auto) Absolute Neuts (auto) Absolute Lymphs (auto) Nucleated RBC % Sodium 141 Potassium 3.4 Chloride 105 Carbon Dioxide 23.2 Anion Gap 13 BUN 3 L Creatinine 0.43 L Estim Creat Clear Calc 174.20 Est GFR (MDRD) Non-Af 129 BUN/Creatinine Ratio 7.5 L Glucose 85 Calcium 8.7 Magnesium 1.7 Total Bilirubin 0.18 Direct Bilirubin 0.09 AST 88 H ALT 33 Alkaline Phosphatase 105 H Total Protein 7.4 Albumin 3.4 L Globulin 4.0 Serum , Qual Urine Color Urine Clarity Urine pH Ur Specific [place] Urine Protein Urine Glucose (UA) Urine Ketones Urine Occult Blood Urine Nitrite Urine Bilirubin Urine Urobilinogen Ur Leukocyte Esterase Urine RBC Urine WBC Ur Squamous Epith Cells Urine Bacteria Hyaline Casts Urine Mucus Salicylates Urine Opiates Screen U Buprenorphine Qual Ur Oxycodone Screen Urine Methadone Screen Urine Fentanyl Screen Acetaminophen Ur Barbiturates Screen Ur Phencyclidine Scrn Ur Amphetamines Screen U Benzodiazepines Scrn Urine Cocaine Screen U Cannabinoids Screen Ethyl Alcohol Discharge Plan Triage Chief Complaint: ETOH Intox ED Provider: Avni Florian Dx/Rx/DC Orders Prescriptions: No Action estradiol 0.5 mg Tablet 0.5 mg PO DAILY Rx Instructions: off 5 days; repeat cycle albuterol sulfate [Ventolin HFA] 90 mcg/actuation Hfa Aerosol Inhaler 90 mcg INHALATION Q6H PRN (Reason: Shortness Of Breath Or Wheezing) levetiracetam 500 mg tablet 500 mg PO BID methadone 10 mg tablet 145 mg PO DAILY phenobarbital 97.2 mg tablet 97.2 mg PO QHS Primary Care Provider: Tori Ashby Referrals: Care Physician,No Primary [Non-Staff] - Print Language: Egyptian
[2024-07-15] VITALS (27 sets, daily range): BP systolic 89–142; BP diastolic 58–99; PULSE 60–91; RESP 12–24; TEMP 35.9–36.9; O2SAT 91–100; BMI 25.4; BMI 24.0
[2024-07-15 00:22] LABS: Absolute Lymphocyte Count 3.27 X10^3/uL (0.83-4.51); Absolute Neutrophil Count 2.6 X10^3/uL (2.0-7.7); Basophil# 0.04 X10^3/uL; Basophil% 0.6 % (0-1); Eosinophil# 0.05 X10^3/uL; Eosinophils% 0.8 % (0-5); Hematocrit 36.9 % (37-47); Hemoglobin 12.9 g/dL (12.0-15.0); Lymphocyte # 3.27 X10^3/ul (0.83-4.51); Mean Corpuscular Hgb 35.5 pg (27.0-32.0); Mean Corpuscular Volume 101.7 fL (81-99); Mean Platelet Vol. 8.4 fl (6.2-12.0); Monocyte# 0.55 X10^3/uL; Monocyte% 8.4 % (0-10); NRBC Flagged by Analyzer 0 % (0-5); Neutrophil % 39.7 % (47-70); Platelet Count 150 K/mm3 (150-450); RBC Distribution Width CV 12.8 % (11.6-14.6); RBC Distribution Width SD 47.6 fl (35.1-43.9); Red Blood Count 3.63 M/mm3 (4.2-5.4); White Blood Count 6.5 K/mm3 (4.4-11.0)
[2024-07-15] MEDS: Lorazepam 2 MG/ML WCH Syringe 1 MG IV ×2 (00:30→00:45)
[2024-07-15] MEDS: levETIRAcetam IV 1,000 MG/100 ML BAG 400 MG IV (00:41)
[2024-07-15 00:49] LABS: Amphetamine Urine NEGATIVE (<1000 ng/mL); Barbiturate Urine PRESUMPTIVE POSITIVE (< 200 ng/mL); Benzodiazepine Urine NEGATIVE (< 200 ng/mL); Buprenorphine Urine NEGATIVE (< 200 ng/mL); Cocaine Urine NEGATIVE (< 300 ng/mL); Fentanyl, Urine NEGATIVE; Methadone Urine PRESUMPTIVE POSITIVE (< 300 ng/mL); Opiates Urine NEGATIVE (< 300 ng/mL); Oxycodone, Urine NEGATIVE (< 100 ng/mL); PCP Urine NEGATIVE (< 25 ng/mL); THC Urine PRESUMPTIVE POSITIVE (< 50 ng/mL)
[2024-07-15 00:49] LABS: Internal QC Validated? YES +Cl - CLEAR BKGD; Pregnancy, Serum, hCG Quali. NEGATIVE Negative
[2024-07-15 00:57] LABS: Acetaminophen (Tylenol) Level < 5.0 ug/mL (8.0-19.0); Salicylate < 0.5 mg/dL (2.8-20.0)
--- NOTE | 2024-07-15 01:05 | ED.RN ---
THIS NURSE WAS IN ROOM WHEN PT BEGAN POSTURING AND OXYGEN LEVELS DROPPED. PT APPEARED TO BE SEIZING. THIS NURSE NOTIFIED MD. THIS NURSE STAYED WITH PT UNTIL PT REGAINED CONSCIOUSNESS.
[2024-07-15 01:16] LABS: Mucous, Urine 0 SEEN /hpf (<or=2+); Red Blood Cells-Urine 0 SEEN /hpf (0-5); White Blood Cells 0 SEEN /hpf (0-5)
[2024-07-15 01:18] LABS: Color, Urine Straw (Yellow); Glucose, Dipstick Normal (Normal); Ketone-Dipstick Negative (Negative); Leukocyte Esterase-Dipstick Negative /ul (Negative); Nitrite-Dipstick Negative (Negative); Occult Blood-Urine Negative /ul (Negative); Protein-Dipstick Negative (Negative); Urine Bilirubin Dipstick Negative (Negative); Urine Clarity Clear (Clear); Urine Urobilinogen Normal (Normal)
[2024-07-15 01:37] LABS: AST(SGOT) 88 U/L (<=31); Alanine Aminotransfer ALT/SGPT 33 U/L (<=34); Albumin, Serum 3.4 g/dL (3.5-5.0); Alkaline Phosphatase 105 U/L (35-104); Anion Gap 13 (5-15); BUN 3 mg/dL (4-19); BUN/Creat Ratio 7.5 RATIO (10-20); Bilirubin, Direct 0.09 mg/dL (0.00-0.30); Calcium,Total 8.7 mg/dL (7.6-11.0); Carbon Dioxide 23.2 mmol/L (21.0-32.0); Chloride 105 mmol/L (98-108); Creatinine, Serum 0.43 mg/dL (0.70-1.20); EST Glomerular Filtration Rate 129 (>60); Glucose 85 mg/dL (70-99); Magnesium 1.7 mg/dL (1.5-2.2); Potassium 3.4 mmol/L (3.3-5.1); Protein, Total 7.4 g/dL (5.9-8.4); Sodium Level 141 mmol/L (133-145); Total Bilirubin 0.18 mg/dL (0.00-1.30)
[2024-07-15 02:03] LABS: Bacteria 2+ /hpf (None Seen); Hyaline Cast 0-5 SEEN /lpf (0-5); Squamous Epithelial Cells - UA 5-10 SEEN /hpf (5-10)
[2024-07-15] MEDS: 0.9% Normal Saline (1000mL) 1,000 ML 999 ML IV ×2 (02:16)
--- NOTE | 2024-07-15 03:56 | PCM.HP.STD ---
HPI - General General Date of Admission: 07/15/24 Date of Service: 07/15/24 Chief Complaint: EtOH Intoxication with Suicidal Ideation. HPI Narrative KOKI NGO, is a 38 F with a past medical history of fentanyl and heroin abuse; on chronic methadone, chronic EtOH abuse; with the patient drinking ~750 mL of whiskey daily; on phenobarbital, history of EtOH withdrawal including alcohol withdrawal seizures; on levetiracetam, history of alcoholic hepatitis and pancreatitis, chronic thrombocytopenia; related to marrow suppression from EtOH, chronic hepatitis C, tobacco abuse; patient now using e-cigarettes, SLE, history of asthma; currently not on treatment, history of abdominal hernia, history of abdominoplasty, history of hysterectomy, depression with anxiety; currently not on pharmacologic treatment and recent admission here from June 22, 2024 to June 25, 2024 for EtOH detoxification with nausea and vomiting complicated by emotional lability who now re-presents to [facility] ER after being dropped off here by her who noted EtOH intoxication and suicidal ideation. The patient was noted to be floridly intoxicated upon arrival and endorsed suicidal ideation. The ER physician then spoke to the patient's on the telephone who requested EtOH detoxification and he stated that she was looking up ways to hang herself on her phone prior to her arrival. Patient informed the nursing staff that she drink an entire beer in the parking lot while waiting to come in for further evaluation and treatment. Shortly after arrival in the ER patient was noted to have witnessed tonic-colonic seizure activity and she was emergently treated with IV lorazepam followed by IV levetiracetam with patient unable to answer questions at this time. In the ER she was noted to have a URBANO of 296 mg/dL with a UDS positive for methadone, barbiturates and cannabinoids. She was then admitted to the ICU for ongoing care for stay that is expected to extend beyond 2 midnights. [facility] Medical History History of drug abuse History of seizure Admitted to alcohol detoxification center Alcohol abuse Lupus Nicotine-filled electronic cigarette user Seizure disorder Abdominal hernia Alcoholic pancreatitis Alcoholic hepatitis Hepatitis C Opiate dependence Substance abuse Alcoholism Home Medications ?Medication ?Instructions ?Recorded ?Last Taken ?Type albuterol sulfate 90 mcg/actuation 90 mcg inhalation Q6H PRN 10/25/21 Unknown History aerosol inhaler (Ventolin HFA) Shortness Of Breath Or Wheezing estradiol 0.5 mg tablet 0.5 mg PO DAILY Check with primary 10/25/21 Unknown History doctor levetiracetam 500 mg tablet 500 mg PO BID 06/22/24 Unknown History methadone 10 mg tablet 145 mg PO DAILY hx polysubstance 06/23/24 Unknown History abuse phenobarbital 97.2 mg tablet 97.2 mg PO QHS 07/15/24 Unknown History Allergy/AdvReac Type Severity Reaction Status Date / Time No Known Allergies Allergy Verified 07/14/24 22:50 Family History Father Alcoholism Surgical History H/O abdominoplasty H/O: hysterectomy Social History household members: significant other Smoking Status: Former smoker Electronic Cigarette Use: with nicotine alcohol intake: current alcohol intake frequency: 3 or more drinks per day Alcohol type: hard liquor details: Daily heavy alcohol use substance use type: other details: Former heroin/fentanyl/opiate abuse, reports clean status, on methadone. ROS ROS Narrative For review of systems was not possible due to patient's florid intoxication and recent Ativan administration for seizure. Vital Signs Vital Signs Vital Signs: 07/14/24 22:50 07/15/24 00:14 07/15/24 00:14 Temperature 97.2 F L 98 F Temperature Source Temporal Oral Pulse Rate 100 80 80 Respiratory Rate 15 18 16 Blood Pressure 116/77 107/80 107/80 Blood Pressure Mean 90 89 89 Pulse Ox 96 98 98 Oxygen Delivery Method Room Air 07/15/24 01:00 07/15/24 01:28 07/15/24 02:00 Temperature Temperature Source Pulse Rate 87 87 84 Respiratory Rate 16 20 H 18 Blood Pressure 101/72 89/62 L 90/58 L Blood Pressure Mean 81 71 68 Pulse Ox 98 92 96 Oxygen Delivery Method Room Air Room Air Room Air 07/15/24 03:00 Temperature Temperature Source Pulse Rate 80 Respiratory Rate 19 H Blood Pressure 93/64 Blood Pressure Mean 73 Pulse Ox 98 Oxygen Delivery Method Room Air Weight Weight: 162 lb 11.218 oz Body Mass Index (BMI) 25.4 Physical Exam Const Constitutional Narrative: Patient is lethargic but arousable after IV lorazepam. Orientation / Consciousness: confused and lethargic HEENT normocephalic, head/scalp atraumatic and moist oral mucous membranes Eyes PERRL, EOMs intact bilaterally and conjunctivae normal Neck no lymphadenopathy and supple Resp normal respiratory effort, no retractions, no use of accessory muscles and clear to auscultation bilaterally Cardio regular rate and regular rhythm GI normal to inspection, nondistended, normoactive bowel sounds, soft to palpation, non-tender and non-distended Extremity normal to inspection, full ROM and no clubbing, cyanosis or edema Skin Skin Narrative: Patient has evidence of rash, abscess, wounds or jaundice. Neuro Neuro Narrative: Patient is lethargic but arousable after IV lorazepam. Psych Psych Narrative: Patient is floridly intoxicated. Results Medical Records Data Attestation: I reviewed the patient's medical records Lab / Micro Data Attestation: I reviewed the patient's lab results. 07/15/24 05:15 07/15/24 01:00 Labs: Laboratory Results - last 24 hr 07/14/24 00:01: WBC 6.5, RBC 3.63 L, Hgb 12.9, Hct 36.9 L, MCV 101.7 H, MCH 35.5 H, MCHC 35.0, RDW Std Deviation 47.6 H, RDW Coeff of Yolanda 12.8, Plt Count 150, MPV 8.4, Immature Gran % (Auto) 0.500, Neut % (Auto) 39.7 L, Lymph % (Auto) 50.0 H, [place] % (Auto) 8.4, Eos % (Auto) 0.8, Baso % (Auto) 0.6, Absolute Neuts (auto) 2.6, Absolute Lymphs (auto) 3.27, Nucleated RBC % 0, Sodium Cancelled, Potassium Cancelled, Chloride Cancelled, Carbon Dioxide Cancelled, Anion Gap Cancelled, BUN Cancelled, Creatinine Cancelled, Estim Creat Clear Calc Cancelled, Est GFR (MDRD) Non-Af Cancelled, BUN/Creatinine Ratio Cancelled, Glucose Cancelled, Calcium Cancelled, Magnesium Cancelled, Total Bilirubin Cancelled, Direct Bilirubin Cancelled, AST Cancelled, ALT Cancelled, Alkaline Phosphatase Cancelled, Total Protein Cancelled, Albumin Cancelled, Globulin Cancelled, Serum , Qual NEGATIVE, Salicylates < 0.5 L, Acetaminophen < 5.0 L, Ethyl Alcohol 296.0 H 07/14/24 00:08: Urine Color Straw, Urine Clarity Clear, Urine pH 6.0, Ur Specific [place] 1.010, Urine Protein Negative, Urine Glucose (UA) Normal, Urine Ketones Negative, Urine Occult Blood Negative, Urine Nitrite Negative, Urine Bilirubin Negative, Urine Urobilinogen Normal, Ur Leukocyte Esterase Negative, Urine RBC 0 SEEN, Urine WBC 0 SEEN, Ur Squamous Epith Cells 5-10 SEEN, Urine Bacteria 2+, Hyaline Casts 0-5 SEEN, Urine Mucus 0 SEEN 07/15/24 00:08: Urine Opiates Screen NEGATIVE, U Buprenorphine Qual NEGATIVE, Ur Oxycodone Screen NEGATIVE, Urine Methadone Screen PRESUMPTIVE POSITIVE, Urine Fentanyl Screen NEGATIVE, Ur Barbiturates Screen PRESUMPTIVE POSITIVE, Ur Phencyclidine Scrn NEGATIVE, Ur Amphetamines Screen NEGATIVE, U Benzodiazepines Scrn NEGATIVE, Urine Cocaine Screen NEGATIVE, U Cannabinoids Screen PRESUMPTIVE POSITIVE 07/15/24 01:00: Sodium 141, Potassium 3.4, Chloride 105, Carbon Dioxide 23.2, Anion Gap 13, BUN 3 L, Creatinine 0.43 L, Estim Creat Clear Calc 174.20, Est GFR (MDRD) Non-Af 129, BUN/Creatinine Ratio 7.5 L, Glucose 85, Calcium 8.7, Magnesium 1.7, Total Bilirubin 0.18, Direct Bilirubin 0.09, AST 88 H, ALT 33, Alkaline Phosphatase 105 H, Total Protein 7.4, Albumin 3.4 L, Globulin 4.0 Assessment & Plan Assessment/Plan (1) Alcohol intoxication delirium: (2) Chronic alcohol abuse: (3) Tonic-clonic seizure: (4) Suicidal ideation: (5) Methadone dependence: (6) Nicotine addiction: QUALIFIERS: Nicotine product type: other Substance use status: uncomplicated Qualified Code(s): F17.290 - Nicotine dependence, other tobacco product, uncomplicated PLAN: Plan 1. Acute EtOH Intoxication in the setting of Chronic EtOH Abuse; with a URBANO of 296 mg/dL present on admission - Admit to ICU. Start IV phenobarbital 100 mg IV 3 times daily and eventually transition to oral preparation and taper per protocol. When patient theresa up she will be encouraged to pursue EtOH cessation. Start MVI infusion and check B12 and folate levels to evaluate for potential nutritional deficiencies associated with chronic EtOH abuse with macrocytosis revealed by elevated MCV of 101.7 fL present on admission. Give ketorolac IV as needed for pain or fever. 2. Witnessed Tonic-Clonic Seizure activity in ER complicating #1 in the setting of previously known EtOH withdrawal seizures; on levetiracetam at time of admission - Continue IV levetiracetam 500 mg twice daily. Give IV lorazepam as needed for breakthrough seizure activity. 3. Suicidal Ideation in the setting of previously known Chronic Depression with Anxiety; currently not on pharmacologic treatment compounding #1 & #2 - Patient was 'pink slipped' in ER. We will consult for psychiatric evaluation once patient is sober. 4. Recent admission here from June 22, 2024 to June 25, 2024 for EtOH detoxification with nausea and vomiting complicated by emotional lability - Noted with ominous pattern of readmission for obviously worsening addiction ~20 days later. 5. Previous fentanyl and heroin abuse; on chronic methadone with UDS positive for methadone, barbiturates and cannabinoids this admission - Restart methadone when this patient is able to tolerate oral intake. Cannabis cessation will be strongly encouraged when patient theresa up. 6. Previous Tobacco abuse; with patient now using e-cigarettes - Patient will have Nicotine patch placed to control nicotine cravings. 7. History of alcoholic hepatitis and pancreatitis - Noted with serum lipase ordered and pending result at this time. Normal ALT of 33 units/L with elevated AST of 88 units/L and normal total bilirubin. 8. Chronic thrombocytopenia; related to marrow suppression from EtOH - Platelet count noted to be 150K present on admission. 9. Chronic hepatitis C - Noted. 10. SLE - Noted with no evidence of acute flare at this time. 11. History of asthma; currently not on treatment - Stable with no evidence of flare at this time. Give albuterol nebulizers as needed. 12. History of abdominal hernia - Noted. 13. History of abdominoplasty - Noted for the sake of completeness. 14. History of hysterectomy - Noted. 15. DVT/GI prophylaxis - Enoxaparin 40 mg sq daily plus SCD's. Famotidine 20 mg IV twice daily. Total time: Approximately (but not less than) 75 minutes. Charges/Coding Visit Charges Inpatient E&M: 19302 Init Hosp L3
--- NOTE | 2024-07-15 04:09 | ED.RN ---
Unable to assess pt's CIWA score due to pt being in a deep sleep and unable to converse clearly with staff
--- NOTE | 2024-07-15 04:57 | ED.RN ---
Report called to [employer] Hussein, questions/concerns answered
[2024-07-15 05:00] LABS: Blood Gas Specimen Type VEN; O2 Delivery Device Room Air; SITE Not entered; VBG BASE EXCESS -1 mmol/L (-1.0-3.5); VBG Bicarbonate 25 mmol/L (22-26); VBG PO2 66 mmHg (25-40); VBG SO2 92 % (50-70); VBG TCO2 26 mmol/L (23-33); VBG pCO2 42.4 mmHg (41-51); VBG pH 7.37 (7.32-7.42)
[2024-07-15] MEDS: Famotidine 200 MG/20 ML MDV 20 MG in 0.9% Normal Saline (Pres. free 8 ML 300 MG IV (05:25)
[2024-07-15] MEDS: Multivitamins 10 ML in 0.9% Normal Saline (500mL Bag) 500 ML IV (05:25)
[2024-07-15] MEDS: 0.9% Normal Saline (1000mL) 1,000 ML 150 ML IV ×2 (05:26→12:10)
[2024-07-15 05:36] LABS: Absolute Lymphocyte Count 3.02 X10^3/uL (0.83-4.51); Absolute Neutrophil Count 1.7 X10^3/uL (2.0-7.7); Basophil# 0.03 X10^3/uL; Basophil% 0.6 % (0-1); Eosinophil# 0.08 X10^3/uL; Eosinophils% 1.5 % (0-5); Hematocrit 33.1 % (37-47); Hemoglobin 11.1 g/dL (12.0-15.0); Lymphocyte # 3.02 X10^3/ul (0.83-4.51); Lymphocyte % 57.6 % (19-41); Mean Corp Hgb Conc 33.5 g/dL (32-36); Mean Corpuscular Hgb 34.9 pg (27.0-32.0); Mean Corpuscular Volume 104.1 fL (81-99); Mean Platelet Vol. 8.4 fl (6.2-12.0); Monocyte# 0.39 X10^3/uL; Monocyte% 7.4 % (0-10); NRBC Flagged by Analyzer 0 % (0-5); Neutrophil # 1.71 X10^3/uL (2.7-7.7); Neutrophil % 32.7 % (47-70); Platelet Count 118 K/mm3 (150-450); RBC Distribution Width SD 49.1 fl (35.1-43.9); Red Blood Count 3.18 M/mm3 (4.2-5.4); White Blood Count 5.2 K/mm3 (4.4-11.0)
[2024-07-15] MEDS: Phenobarbital Sodium 65 MG/ML Vial 100 MG IV (05:51)
[2024-07-15 06:13] LABS: Lipase 43 U/L (13-75); Magnesium 1.5 mg/dL (1.5-2.2); Phosphorus 3.4 mg/dL (2.7-4.5); Vitamin B12 1436 pg/mL (180-914)
[2024-07-15 06:37] LABS: FOLATES,SERUM (FOLIC ACID) 7.07 ng/mL (4.60-34.80)
--- NOTE | 2024-07-15 09:57 | CASEMGMT ---
Addendum entered by Katy Louis 07/15/24 10:41: Pt is drowsy and confused at this time; SW will follow for completion of SDOH assessment. JESSE Rust Original Note: Social Work- SW participated in inter-disciplinary rounds regarding pt care. Pt is pink slipped and will need crisis updated when medically ready. SW left a message to coordinate with [facility] specialist as there are concerns on if information should be shared with pt SO. DAYANA remains available to follow. JESSE Rust
[2024-07-15] MEDS: levETIRAcetam IV 500 MG in 0.9% Normal Saline (100mL Bag) 100 ML 420 MG IV (10:58)
[2024-07-15] MEDS: Phenobarbital 32.4 MG Tablet 64.8 MG PO ×2 (13:55→21:41)
[2024-07-15] MEDS: Methadone 10 MG Tablet 60 MG PO (13:55)
--- NOTE | 2024-07-15 19:50 | PCM.HOSP.N ---
Hospitalist Note Patient was seen and examined briefly today, she became more alert today and I wrote for a dose of methadone which she is chronically taking-I did not feel comfortable with writing her full dose which is 145 mg, patient is now on phenobarbital for alcohol detox and I gave the patient 60 mg of methadone today in place of her usual dose. According to pharmacy here, patient was intoxicated when she went to get her dose at the methadone clinic yesterday and they only gave her 70 mg. Patient was seen by crisis and crisis is trying to get her placed into a psych facility.
[2024-07-15] MEDS: levETIRAcetam 500 MG Tablet PO (21:34)
[2024-07-16] VITALS: BP 134/98; PULSE 98; RESP 16; TEMP 37.1; O2SAT 98
[2024-07-16 04:00] VITALS: BP 121/85; PULSE 72; RESP 16; TEMP 36.9; O2SAT 98
[2024-07-16] MEDS: Phenobarbital 32.4 MG Tablet 64.8 MG PO ×2 (05:00→13:24)
[2024-07-16 06:00] VITALS: BMI 24.0
[2024-07-16] MEDS: hydrOXYzine PAM 25 MG Capsule 50 MG PO ×2 (06:31→10:14)
[2024-07-16] MEDS: Senna Tablet 2 TABLET PO (06:31)
[2024-07-16 07:01] LABS: ALB/GLOB Ratio 0.7 RATIO (0.9-2.4); AST(SGOT) 78 U/L (<=31); Alanine Aminotransfer ALT/SGPT 29 U/L (<=34); Albumin, Serum 2.8 g/dL (3.5-5.0); Alkaline Phosphatase 99 U/L (35-104); Anion Gap 13 (5-15); BUN 5 mg/dL (4-19); BUN/Creat Ratio 9.7 RATIO (10-20); Calcium,Total 8.8 mg/dL (7.6-11.0); Carbon Dioxide 16.8 mmol/L (21.0-32.0); Chloride 103 mmol/L (98-108); Creatinine, Serum 0.49 mg/dL (0.70-1.20); EST Glomerular Filtration Rate 124 (>60); Estimated Creatinine Clearance 152.87 ml/min (50-250); Globulin 4.1 g/dL (2.2-4.2); Glucose 85 mg/dL (70-99); Potassium 3.7 mmol/L (3.3-5.1); Protein, Total 6.9 g/dL (5.9-8.4); Sodium Level 133 mmol/L (133-145); Total Bilirubin 0.61 mg/dL (0.00-1.30)
--- NOTE | 2024-07-16 07:40 | NURSING ---
Spoke with [facility] (ph. [phone]) to verify current methadone dose per pharmacy request. Pt received Methadone 145mg on 07/13, then Methadone 70mg on 07/14 due to reporting to the center intoxicated (otherwise would have received her full dose).
--- NOTE | 2024-07-16 09:35 | PN.HOSP_ITS ---
Reason for Visit Reason for Visit: Diagnoses Alcohol abuse, uncomplicated (07/15/24) Alcohol abuse with intoxication delirium (07/15/24) Opioid dependence, uncomplicated (07/15/24) Nicotine dependence, unspecified, uncomplicated (07/15/24) Nicotine dependence, other tobacco product, uncomplicated (07/15/24) Other generalized epilepsy and epileptic syndromes, not intractable, without status epilepticus (07/15/24) Suicidal ideations (07/15/24) Subjective Subjective Patient was seen and examined today, she is alert and appropriate, she does not appear lethargic or sleepy. I told her I would increase her methadone to 100 mg-her usual dose as an outpatient is 145 mg daily. Objective Data Objective Data Vital Signs: Vital Signs Temp Pulse Resp BP Pulse Ox O2 Del Method O2 Flow Rate 98.5 F 72 16 121/85 H 98 Room Air 2 07/16/24 04:00 07/16/24 04:00 07/16/24 04:00 07/16/24 04:00 07/16/24 04:00 07/16/24 09:30 07/15/24 10:00 Oxygen Flow Rate (L/min) 2 Oxygen Delivery Method Room Air Weight: 69.6 kg Body Mass Index (BMI) 24.0 Intake & Output: Intake and Output for Last 24 Hours 07/14/24 07/15/24 07/16/24 23:59 23:59 23:59 Intake Total 3925 / 4165 1240 / 1240 Output Total 0 / 0 Balance 3925 / 4165 1240 / 1240 Lab / Micro Data 07/15/24 05:15 07/16/24 06:15 Labs: Laboratory Results - last 24 hr 07/15/24 05:15: Ethyl Alcohol 177.0 H 07/16/24 06:15: Sodium 133, Potassium 3.7, Chloride 103, Carbon Dioxide 16.8 L, Anion Gap 13, BUN 5, Creatinine 0.49 L, Estim Creat Clear Calc 152.87, Est GFR (MDRD) Non-Af 124, BUN/Creatinine Ratio 9.7 L, Glucose 85, Calcium 8.8, Total Bilirubin 0.61, AST 78 H, ALT 29, Alkaline Phosphatase 99, Total Protein 6.9, A lbumin 2.8 L, Globulin 4.1, Albumin/Globulin Ratio 0.7 L Physical Exam Const alert, oriented x3, no apparent distress, average body habitus and healthy appearing General Appearance: cooperative, well kempt and well developed Orientation / Consciousness: awake, oriented to person, oriented to place and oriented to time HEENT normocephalic, head/scalp atraumatic and moist oral mucous membranes Eyes PERRL, EOMs intact bilaterally and conjunctivae normal Neck supple, no JVD, thyroid normal and no carotid bruits General: trachea midline Resp normal respiratory effort, no retractions, no use of accessory muscles and clear to auscultation bilaterally Auscultation: Negative for rales, rhonchi or wheezes Cardio regular rate, regular rhythm, S1 normal heart sound, S2 normal heart sound, no murmurs, no rub and no gallops GI normal to inspection, nondistended, normoactive bowel sounds, soft to palpation, non-tender and non-distended Extremity no clubbing, cyanosis or edema Skin no rashes or lesions noted General Skin Exam: no breakdown Neuro oriented x3, CN's II-XII intact bilaterally, moves all extremities, no focal motor deficits and no sensory deficits noted Sensorium / Orientation: awake and alert Speech: speech normal Psych affect normal Assessment & Plan Assessment/Plan (1) Alcohol intoxication delirium: PLAN: Plan 1. Alcohol intoxication in the setting of chronic alcohol use disorder-patient is alert today and does not appear to have any withdrawal symptoms. She remains on phenobarb 3 times a day #2 suicidal ideation-patient is being seen by crisis and will likely go to a psychiatric facility #3 seizure disorder-patient is stable at this time #4 chronic methadone usage for opiate use disorder-again patient's usual dose is 145 mg daily, I believe that she can tolerate 100 mg today-she does not appear lethargic or sleepy. Patient appears overall stable at this time, I have elected to give her 100 mg methadone today and the patient seems okay with this, again I believe she is medically stable at this time.\ Total spent by myself addressing the patient's medical issues, reviewing all of her data, and collaborating with patient's care team: 35 minutes Charges/Coding Visit Charges Inpatient E&M: 57185 Subs Hosp L2
--- NOTE | 2024-07-16 09:55 | CASEMGMT ---
Social Work SW placed phone call to Crisis and spoke with Peg. Peg states that [facility] has tenatively accepted pt, however they need documentation pt is medically cleared for psychiatric placement prior to accepting her. Supporting documentation faxed to Crisis. Charge nurse and physician emi. JESSE Fuentes
[2024-07-16] MEDS: Methadone 10 MG Tablet 100 MG PO (10:09)
[2024-07-16 10:10] VITALS: PULSE 52
[2024-07-16] MEDS: levETIRAcetam 500 MG Tablet PO (10:10)
[2024-07-16 10:25] VITALS: BP 142/96; PULSE 51; RESP 16; TEMP 36.6; O2SAT 97
--- NOTE | 2024-07-16 12:34 | DS.PCM_ITS ---
Providers Date of Admission: 07/15/24 Date of Discharge: 07/16/24 Primary Care Physician: Dr. Tori Ashby MD Reason For Visit: ETOH INTOXICATION CHRONIC ETOH ABUSE TONIC-CLONIC Diagnosis Discharge Diagnosis (1) Alcohol intoxication delirium: Status: Acute Code(s): F10.121 - Alcohol abuse with intoxication delirium Plan 1. Alcohol intoxication in the setting of chronic alcohol use disorder-patient is alert today and does not appear to have any withdrawal symptoms. She remains on phenobarb 3 times a day #2 suicidal ideation-patient is being seen by crisis and will likely go to a psychiatric facility #3 seizure disorder-patient is stable at this time #4 chronic methadone usage for opiate use disorder-again patient's usual dose is 145 mg daily, I believe that she can tolerate 100 mg today-she does not appear lethargic or sleepy. Patient appears overall stable at this time, I have elected to give her 100 mg methadone today and the patient seems okay with this, again I believe she is medically stable at this time.\ Total spent by myself addressing the patient's medical issues, reviewing all of her data, and collaborating with patient's care team: 35 minutes Medications at Discharge Home Medications albuterol sulfate 90 mcg/actuation aerosol inhaler (Ventolin HFA) 90 mcg inhalation Q6H PRN Shortness Of Breath Or Wheezing 10/25/21 estradiol 0.5 mg tablet 0.5 mg PO DAILY Check with primary doctor 10/25/21 levetiracetam 500 mg tablet 500 mg PO BID 06/22/24 methadone 10 mg tablet 145 mg PO DAILY hx polysubstance abuse 06/23/24 phenobarbital 97.2 mg tablet 97.2 mg PO QHS 07/15/24 Hospital Course Operations None Procedures None Summary of Care Provided Minutes Spent on Discharge: 31 Hospital Course: This 38-year-old white female was seen in the emergency room at [facility] requesting services for alcohol detox, she was also threatening to kill herself. Patient appeared intoxicated on presentation to the ER, labs were drawn, tox screen was presumptive positive for methadone, cannabinoids, and barbiturates. Blood alcohol level was 296. Chemistry panel and CBC were essentially remarkable. Patient was admitted initially to ICU, she remained lethargic for several hours and then woke up, we contacted her methadone clinic and confirmed that she was taking 145 mg of methadone daily but the day before, the methadone clinic and only given her 70 mg because she appeared intoxicated to them. Patient was seen by crisis, they felt that she would need psychiatric inpatient treatment and approval was obtained for the patient to go to [facility]. On 07/16/2024, patient was seen and examined: On examination she appeared in good health and spirits, she does not appear to be in any distress. Vital signs as documented. Skin warm and dry and without overt rashes. Neck without JVD, thyroid appears normal, trachea is midline, neck is supple. Lungs clear, normal air movement was noted. Heart exam notable for regular rhythm, normal sounds and absence of murmurs, rubs or gallops. Abdomen unremarkable and without evidence of organomegaly, masses, or abdominal aortic enlargement, bowel sounds are present in all 4 quadrants, no abdominal tenderness was noted. Extremities nonedematous, no cyanosis was noted, no clubbing was noted. Neuro: Cranial nerves II through XII are grossly intact, no focal motor deficits were noted, sensation to light touch and pinprick is intact, motor exam 5/5 throughout. Psych: Patient is alert and oriented x3, she does not appear anxious or depressed, she does not appear agitated. Patient was medically stable for discharge on 07/16/2024 to an inpatient detox center. Weight / BMI Weight Weight: 69.6 kg Body Mass Index (BMI) 24.0 ABG / Lab / Microbiology Data 07/15/24 05:15 07/16/24 06:15 Laboratory: Laboratory Results - last 24 hr 07/15/24 05:15: Ethyl Alcohol 177.0 H 07/16/24 06:15: Sodium 133, Potassium 3.7, Chloride 103, Carbon Dioxide 16.8 L, Anion Gap 13, BUN 5, Creatinine 0.49 L, Estim Creat Clear Calc 152.87, Est GFR (MDRD) Non-Af 124, BUN/Creatinine Ratio 9.7 L, Glucose 85, Calcium 8.8, Total Bilirubin 0.61, AST 78 H, ALT 29, Alkaline Phosphatase 99, Total Protein 6.9, A lbumin 2.8 L, Globulin 4.1, Albumin/Globulin Ratio 0.7 L D/C Instructions DC O2, CPAP, BIPAP Needs Home O2 Discharge instructions: No Meaningful Use Info Meaningful Use Meaningful Use Diagnoses (Choose all that apply): None applicable Ischemic Stroke Statin Dosing Therapy Reference: STATIN DOSE THERAPY REFERENCE: * Patients > 75 years receive moderate or high dose statin therapy. * Patients 75 years or YOUNGER should receive HIGH intensity statin dose unless contraindicated. You will be required to document reason for non-treatment if statin daily dose does not meet guidelines. HIGH DOSE STATIN THERAPY DAILY Atorvastatin > than or = to 40 mg Rosuvastatin > than or = to 20 mg Amlodipine + Atorvastatin > than or = to 2.5/40 mg Ezetimibe + Simvastatin 10/80 mg Simvastatin 80mg Discharge Plan Admission Admit Date/Time: 07/15/24 04:30 Attending Provider: Artur Coulter Primary Care Provider: Tori Ashby Consulting Providers: Octavio Uribe Discharge Orders/Prescriptions Prescriptions: No Action estradiol 0.5 mg Tablet 0.5 mg PO DAILY Rx Instructions: off 5 days; repeat cycle albuterol sulfate [Ventolin HFA] 90 mcg/actuation Hfa Aerosol Inhaler 90 mcg INHALATION Q6H PRN (Reason: Shortness Of Breath Or Wheezing) levetiracetam 500 mg tablet 500 mg PO BID methadone 10 mg tablet 145 mg PO DAILY phenobarbital 97.2 mg tablet 97.2 mg PO QHS Referrals / Follow Up: Care Physician,No Primary [Non-Staff] - Tori Ashby MD [Primary Care Provider] - Disposition Discharge Orders: Discharge Patient (Routine); Ordered 07/16/24 Ordered By: Dr. Artur Coulter Charges/Coding Visit Charges Inpatient E&M: 48504 Disch Hosp >30min
[2024-07-16 13:35] VITALS: BP 132/92; PULSE 54; RESP 16; TEMP 36.8; O2SAT 97
--- NOTE | 2024-07-16 14:44 | PCA ---
late entry, pt going to [facility] accepting physician, pt going to balance unit, physicians ambulance called at 1245 with a 90 minute ETA, transportation here 1438 for discharge
== END 2024-07-16 14:46 | DRG 773 ==
LOC: ED 07-15 00:25 → ICU 07-15 04:49 → MS3 07-15 17:21
PROVIDERS: Admitting Provider Internal Medicine; Emergency Provider Surgery; PCP Internal Medicine; Visit Provider Internal Medicine
DX: F10.121 Alcohol abuse with intoxication delirium (principal); F11.20 Opioid dependence, uncomplicated; D69.6 Thrombocytopenia, unspecified; G40.409 Other generalized epilepsy and epileptic syndromes, not intractable, without status epilepticus; B18.2 Chronic viral hepatitis C; M32.9 Systemic lupus erythematosus, unspecified; F41.8 Other specified anxiety disorders; F17.290 Nicotine dependence, other tobacco product, uncomplicated; Z90.710 Acquired absence of both cervix and uterus; R45.851 Suicidal ideations; Y90.8 Blood alcohol level of 240 mg/100 ml or more
CPT/HCPCS: 36415; 80048; 80053; 80076; 80143; 80179; 80307; 81001; 82077; 82607; 82746; 82803; 83690; 83735; 84100; 84443; 84703; 85025; 93005; 94762; 99285; A4216